=== PATIENT | female | born 1975 | race Caucasian/White ===

== ENCOUNTER → 2021-02-24 09:57 | Outpatient (CLI) | payer BC, SELFPAY ==
--- NOTE | ~2021-02-24 | XR_ITS ---
XR chest 2V DATE: 02/24/2021 10:17 INDICATION: Personal history of pneumonia TECHNIQUE: 2 views COMPARISON: 01/13/2015 2 view chest FINDINGS: Normal heart size. No hilar or mediastinal enlargement. No pulmonary infiltrate or consolid ation, pleural effusion or pulmonary vascular congestion or pneumothorax. Surgical clips, right upper quadrant, consistent with cholecystectomy. IMPRESSION: No active cardiopulmonary disease Reviewed, dictated and finalized at location A.
--- NOTE | ~2021-02-24 | XR_ITS ---
XR lumbar spine min 4V DATE: 02/24/2021 10:17 INDICATION: Back pain TECHNIQUE: AP, lateral, bilateral oblique views and coned lateral lumbosacral COMPARISON: 01/17/2018 lumbar spine FINDINGS: There are 4 functional lumbar vertebrae. There is a transitional lumbosacral vertebra. No fracture or bone destruction is evident. The lumbar and included lower thoracic pedicles are intac t. Lumbar interspaces are relatively well preserved. There is minimal degenerative spurring of the francisco mbar spine. No spondylolysis or spondylolisthesis. The sacroiliac joints appear normal. Surgical clips, right upper quadrant, likely due to cholecystectomy. Approximately 3 mm calcification and possible smaller calcifications overlying the lower pole the lef t kidney, suggesting left nephrolithiasis. IMPRESSION: Transitional lumbosacral vertebra Minimal degenerative change of the lumbar spine Status post cholecystectomy Probable left nephrolithiasis Reviewed, dictated and finalized at location A.
== END ==
PROVIDERS: Visit Provider Family Medicine
DX: M54.9 Dorsalgia, unspecified (principal); Z87.01 Personal history of pneumonia (recurrent); Z90.49 Acquired absence of other specified parts of digestive tract
CPT/HCPCS: 71046; 72110

== ENCOUNTER 2021-08-08 09:32 | Outpatient (CLI) | payer BC, SELFPAY ==
--- NOTE | ~2021-08-08 | MM_ITS ---
EXAMINATION: MM screening [facility] BI w jessica HISTORY: Screening TECHNIQUE: Craniocaudal and mediolateral oblique 3-D tomosynthesis images were obtained and synthetic 2-D images were generated. CAD analysis was submitted and interpreted. COMPARISON: Comparison to multiple prior studies sequentially, with oldest reviewed study dated 05/2018. BREAST PARENCHYMAL COMPOSITION: There are scattered areas of fibroglandular density. FINDINGS: There is no evidence of suspicious mass, calcification, or architectural distortion to sugg est malignancy in either breast. There has been no suspicious interval change. IMPRESSION: 1. No mammographic evidence of malignancy. 2. Recommend routine screening mammography in one year. BI-RADS Category 1: Negative Reviewed, dictated and finalized at location A.
== END 2021-08-08 09:33 | disposition home or self-care (01) ==
LOC: ANHIMG 09:33
PROVIDERS: PCP Family Medicine; Visit Provider Nurse Practitioner Obstetrics & Gynecology
DX: Z12.31 Encounter for screening mammogram for malignant neoplasm of breast (principal)
CPT/HCPCS: 77063; 77067

== ENCOUNTER → 2022-01-14 09:35 | Outpatient (CLI) | payer BC, SELFPAY ==
--- NOTE | ~2022-01-14 | XR_ITS ---
EXAMINATION: XR abdomen/kub 1V INDICATION: Personal history of urinary calculi TECHNIQUE: Supine views of the abdomen were obtained on 2 radiographs. COMPARISON: 02/24/2021 FINDINGS: There are stones measuring 3 mm and 2 mm in the left kidney. No stones are identified in th e right kidney with the expected location of the ureters or bladder. There are phleboliths of the pel vis. The bowel gas pattern is normal. Cholecystectomy clips are noted in the right upper quadrant. IMPRESSION: 1. Left nephrolithiasis. Reviewed, dictated and finalized at location B. 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 Left nephrolithiasis.
--- NOTE | ~2022-01-14 | XR_ITS ---
EXAMINATION: XR lumbar spine 6V w bending EXAM DATE: 01/14/2022 10:08 INDICATION: M54.50 - Low back pain, unspecified . TECHNIQUE: Lumber spine frontal, lateral, bilateral oblique projections. Coned down frontal and lat eral L5-S1 lumbar projections for interpretation. Additional lateral flexion and lateral extension p rojections obtained. Comparison is made to prior examination from 02/24/2021. FINDINGS: Vertebral bodies are aligned on all the lateral projections. Mild to moderate T12-L1 and L1 -T2 disc disease, mild disc disease at the other lumbar levels. Mild to moderate lumbar facet arthrop athy. No spondylolysis. Sacrum, sacroiliac joints, sacral arcuate lines are intact. Probable left nep hrolithiasis. There are cholecystectomy clips. IMPRESSION: 1. Mild to moderate lumbar spondylosis. 2. Left nephrolithiasis. Reviewed, dictated and finalized at location A. 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
== END ==
PROVIDERS: PCP Family Medicine; Visit Provider Nurse Practitioner Family
DX: M54.50 Low back pain, unspecified (principal); Z87.442 Personal history of urinary calculi; M47.896 Other spondylosis, lumbar region; N20.0 Calculus of kidney
CPT/HCPCS: 72114; 74018

== ENCOUNTER 2022-09-20 10:40 | Emergency (ER) | payer BC, SELFPAY ==
--- NOTE | ~2022-09-20 | CT_ITS ---
EXAMINATION: CT abdomen pelvis wo con DATE: 09/20/2022 13:17 INDICATION: Left flank pain TECHNIQUE: Computed tomography (CT) of the abdomen and pelvis was performed without intravenous contr ast. The dose-length product (DLP) was 460.22 mGy-cm. Automated exposure control and iterative recons truction technique were employed. COMPARISON: 06/27/2012 FINDINGS: Stable subpleural nodules of the lower lobes measuring up to 4 mm are consistent with old g ranulomatous disease. The gallbladder is surgically absent. The liver is diffusely low in attenuation when compared with the spleen, consistent with hepatic steatosis. The spleen, pancreas, and adrenal glands are normal. The right kidney is unremarkable. There is a 4 mm stone at the left ureteropelvic junction causing mild left hydronephrosis. There is a 5 mm nonobstructing stone in the left kidney lo wer pole. No pathologically enlarged abdominal or pelvic lymph nodes are identified. There is no free intraperitoneal gas or evidence of bowel obstruction. There is atrophy of the left iliopsoas muscle. There is mild lumbar spondylosis. There is a small fat-containing umbilical hernia. IMPRESSION: 1. 4 mm stone at the left ureteropelvic junction causing mild hydronephrosis. 2. 5 mm nonobstructing stone of the left kidney lower pole. 3. Atrophy of the left iliopsoas muscle of unclear etiology. Reviewed, dictated and finalized at location A. 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
--- NOTE | ~2022-09-20 | XR_ITS ---
XR abdomen/kub 1V DATE: 09/20/2022 14:52 INDICATION: Left flank pain TECHNIQUE: 2 portable supine AP views COMPARISON: 09/20/2022 CT abdomen pelvis FINDINGS: Approximately 4 mm calcification overlying lower pole left kidney consistent with nonobstru cting calculus. Approximately 4 mm calcification overlying the proximal left ureter at the L4 level, consistent with proximal left ureteral calculus noted on 09/20/2022 CT examination. Status post cholecystectomy. No evidence of bowel obstruction. IMPRESSION: Approximately 4 mm proximal left ureteral calcified calculus at L4 level Nonobstructing approximately 4 mm lower pole left renal calcified calculus Status post cholecystectomy Reviewed, dictated and finalized at Location A. Reviewed, dictated and finalized at location A. 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
[2022-09-20 10:49] VITALS: BP 145/80; PULSE 92; RESP 16; TEMP 37.3; O2SAT 100
[2022-09-20 11:46] LABS: Appearance Urine Cloudy (Clear); Basophils Absolute Auto 0.1 K/mm3 (0.0-0.1); Basophils Percent Auto 0.7 % (0.2-1.2); Bilirubin Urine 1+ (Negative); Blood Urine 3+ (Negative); Eosinophils Absolute Auto 0.1 K/mm3 (0-0.3); Eosinophils Percent Auto 0.8 % (0-4.4); Glucose Urine UA Negative (Negative); Hematocrit 40.6 % (37.0-47.0); Hemoglobin 13.3 g/dL (12.0-15.0); Immature Granulocyte Absolute 0.04 K/mm3 (0.00-0.031); Immature Granulocyte Percent A 0.5 % (0-0.5); Ketones Urine Negative (Negative); Leukocyte Esterase Ur Negative LEU/UL (Negative); Lymphocytes Absolute Auto 1.67 K/mm3 (0.9-3.2); Lymphocytes Percent Auto 19.2 % (18.3-44.2); Mean Corpuscular HGB Conc 32.8 g/dl (32-36); Mean Corpuscular Hemoglobin 29.2 pg (26-34); Mean Corpuscular Volume 89.2 fl (80-100); Mean Platelet Volume 9.6 fl (7.4-10.4); Monocytes Absolute Auto 0.5 K/mm3 (0.1-0.6); Monocytes Percent Auto 5.3 % (2.6-8.5); Neutrophils Absolute Auto 6.4 K/mm3 (1.3-6.7); Neutrophils Percent Auto 73.5 % (45.5-73.1); Nitrate Urine Negative (Negative); Platelet Count Result 204 k/mm3 (150-375); Protein Urine 1+ mg/dL (Negative); Red Blood Count 4.55 M/mm3 (4.2-5.4); Specific Grav Ur 1.025 (1.001-1.035); Urobilinogen Urine 0.2 mg/dL (<2.0); White Blood Count 8.7 K/mm3 (4.5-10.0); pH Urine 5.5 (5.0-9.0)
[2022-09-20 11:52] LABS: Add Urine Microscopic? YES; Color Urine Dark Yellow (Yellow)
[2022-09-20 11:56] LABS: Bacteria Urine Trace /hpf; Mucus Urine Few /lpf; RBC Urine >75 /hpf (0-2); Squamous Epithelial Cell Urine Many /hpf (Few)
[2022-09-20 11:56] LABS: Alanine Aminotransferase 41 U/L (6-35); Albumin Level 4.5 g/dL (3.5-5.1); Alkaline Phosphatase 62 U/L (38-126); Anion Gap 10 mmol/L (8-16); Aspartate Amino Transferase 33 U/L (14-36); Bilirubin,Total 0.5 mg/dL (0.2-1.3); Blood Urea Nitrogen 13 mg/dL (7-17); Calcium 8.8 mg/dL (8.4-10.2); Carbon Dioxide 26 mmol/L (22-30); Chloride 103 mmol/L (98-107); Estimated CRCL calculation 110 ml/min; Estimated Glomerular Filt Rate > 60; Glucose 147 mg/dL (65-110); Potassium 4.2 mmol/L (3.4-5.0); Sodium 139 mmol/L (137-145)
--- NOTE | 2022-09-20 12:45 | ED.GENADULT ---
HPI - General Adult General Chief complaint: Urogenital-Female Stated complaint: left flank pain, hx kidney stones Time Seen by Provider: 09/20/22 12:21 History of Present Illness HPI narrative: Patient is a 47-year-old female who presents ER with left flank pain. Going on intermittently over the last 2 days. Has waves of nausea and vomiting. No urinary frequency urgency or dysuria. Radiates into the abdomen. No fevers or chills or sweats. No alleviating factors. Has history of stones in the past and this feels similar Related Data Home Medications Medication Instructions Recorded Confirmed adapalene 0.1 % topical cream 1 applic topical QHS 02/19/21 06/30/22 aspirin 81 mg tablet,delayed 81 mg PO DAILY 02/19/21 06/30/22 release (Adult Low Dose Aspirin) fluticasone propionate 50 1 spray intranasal DAILY 02/19/21 06/30/22 mcg/actuation nasal spray,suspension lisinopril 10 mg tablet 10 mg PO DAILY 02/19/21 06/30/22 oxymetazoline 1 % topical cream 1 applic topical DAILY 02/19/21 06/30/22 (Rhofade) metoprolol succinate 25 mg 50 mg PO DAILY 10/07/21 06/30/22 tablet,extended release 24 hr Allergies Allergy/AdvReac Type Severity Reaction Status Date / Time No Known Allergies Allergy Mild Verified 06/30/22 08:26 Review of Systems Review of Systems: All systems reviewed & are unremarkable except as noted in HPI and below Constitutional: Constitutional: Denies chills, Denies fatigue and Denies fever(s) ENT: Denies nasal congestion and Denies sore throat Cardiovascular: Cardiovascular: Denies chest pain, Denies rapid heart rate and Denies radiating jaw, neck or arm pain Respiratory: Respiratory: Denies cough and Denies dyspnea Gastrointestinal: Gastrointestinal: Reports abdominal pain, Reports nausea and Reports vomiting Genitourinary: Genitourinary: Denies hematuria, Denies nocturia, Denies dysuria and Reports flank pain PMFSH Past Medical History Medical History Acute URI Body mass index (BMI) of 38.0 to 38.9 in adult Body mass index [BMI] 34.0-34.9, adult (04/22/17) Body mass index [BMI] 36.0-36.9, adult (02/07/18) Body mass index [BMI] 37.0-37.9, adult (01/24/18) Anjali infection of flexural skin Constipation, unspecified Delivery by (planned) section occurring after 37 completed weeks of gestation but before 39 completed weeks gestation due to (spontaneous) onset of labor, with mention of complication Epigastric pain Essential (primary) hypertension Fatty liver disease, nonalcoholic Hyperglycemia Hyperhomocystinemia Hypertension Influenza vaccine needed Kidney stone Lymph nodes enlarged Other constipation Plantar fasciitis, bilateral Pre-diabetes Rash RUQ pain Tension headache Unspecified injury of left wrist, hand and finger(s), initial encounter Family History Family History Father Diabetes mellitus Hypertension Mother Acute Crohn's disease Osteoporosis Sibling Kidney disease Grandparent Carcinoma of colon AA (alcohol abuse) Social History Social History Smoking status: Never smoker Tobacco type: cigarettes Second hand tobacco smoke exposure: No Alcohol intake: never Substance use: never Substance use type: does not use 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 HEAD: Normocephalic, atraumatic. CHEST: Clear to auscultation. No respiratory distress. HEART: Regular rate and rhythm. Normal peripheral pulses. ABDOMEN: Soft, nontender, nondistended. EXTREMITIES: Marcela
[2022-09-20 14:43] VITALS: BP 112/73; PULSE 90; RESP 16; O2SAT 98
== END 2022-09-20 15:14 | disposition home or self-care (01) ==
PROVIDERS: Emergency Medicine; Emergency Provider Emergency Medicine; PCP Family Medicine
DX: N13.2 Hydronephrosis with renal and ureteral calculous obstruction (principal); I10 Essential (primary) hypertension; R73.03 Prediabetes; Z87.442 Personal history of urinary calculi; Z79.82 Long term (current) use of aspirin; Z79.85 Long-term (current) use of injectable non-insulin antidiabetic drugs; M62.58 Muscle wasting and atrophy, not elsewhere classified, other site
CPT/HCPCS: 36415; 74018; 74176; 80053; 81001; 81025; 85025; 87077; 87086; 87088; 99284

== ENCOUNTER → 2022-09-28 10:20 | Outpatient (CLI) | payer BC, SELFPAY ==
--- NOTE | ~2022-09-28 | XR_ITS ---
XR abdomen/kub 1V 09/28/2022 10:35 Indication: Left renal stone follow-up Procedure: KUB Comparison: CT/KUB dated 09/20/2022 Findings: Bowel gas pattern is nonobstructive. Moderate colonic fecal loading. Stable appearance to 4 mm left UPJ stone at the L3 level. There is a left renal stone. No acute osseous abnormality. There is mild osteoarthritis of the hips. Impression: 1: Stable appearance to left renal and UPJ stones. Reviewed, dictated and finalized at location B. MARKER Impression: 1: Stable appearance to left renal and UPJ stones.
== END ==
PROVIDERS: PCP Family Medicine; Visit Provider Nurse Practitioner Adult Health
DX: N20.0 Calculus of kidney (principal)
CPT/HCPCS: 74018

== ENCOUNTER 2022-10-21 15:08 | Outpatient (CLI) | payer BC, SELFPAY ==
--- NOTE | ~2022-10-21 | MM_ITS ---
EXAMINATION: MM screening [facility] BI w jessica HISTORY: Screening TECHNIQUE: Craniocaudal and mediolateral oblique 3-D tomosynthesis images were obtained and synthetic 2-D images were generated. CAD analysis was submitted and interpreted. COMPARISON: Comparison to multiple prior studies sequentially, with oldest reviewed study dated 05/2018. BREAST PARENCHYMAL COMPOSITION: There are scattered areas of fibroglandular density. FINDINGS: There is no evidence of suspicious mass, calcification, or architectural distortion to sugg est malignancy in either breast. There has been no suspicious interval change. IMPRESSION: 1. No mammographic evidence of malignancy. 2. Recommend routine screening mammography in one year. BI-RADS Category 1: Negative Reviewed, dictated and finalized at location B. 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
== END 2022-10-21 15:09 | disposition home or self-care (01) ==
LOC: ANHIMG 15:10
PROVIDERS: PCP Family Medicine; Visit Provider Nurse Practitioner Obstetrics & Gynecology
DX: Z12.31 Encounter for screening mammogram for malignant neoplasm of breast (principal)
CPT/HCPCS: 77063; 77067

== ENCOUNTER → 2022-10-26 09:19 | Outpatient (CLI) | payer BC, SELFPAY ==
--- NOTE | ~2022-10-26 | XR_ITS ---
Supine and upright views of the abdomen Clinical history: Left ureteral stone COMPARISON: 09/28/2022 Findings: Bowel gas pattern is nonspecific. No evidence for obstruction or free air. Small left renal stone noted. Previously noted left ureteral stone no longer visualized. Cholecystectomy clips presen t. Osseous structures are intact. Impression: Previously noted left ureteral stone no longer visualized. Left nephrolithiasis. 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 Left nephrolithiasis.
== END ==
PROVIDERS: PCP Family Medicine; Visit Provider Nurse Practitioner Adult Health
DX: N20.1 Calculus of ureter (principal)
CPT/HCPCS: 74018

== ENCOUNTER 2023-11-30 03:36 | Day surgery (SDC) | payer BC, SELFPAY ==
[2023-11-03 08:57] VITALS: BMI 37.3
--- NOTE | 2023-11-26 09:31 | SUR.PREOP ---
Patient called regarding upcoming procedure. Reviewed preop instructions, appointment times, and procedure prep.
[2023-11-30 06:29] LABS: Glucose Point of Care 115 mg/dl (65-105)
[2023-11-30 06:31] VITALS: BP 135/81; PULSE 87; RESP 16; TEMP 36.4; O2SAT 100
[2023-11-30] MEDS: LACTATED RINGERS 1,000 ML 150 ML IV CONT (06:33)
--- NOTE | 2023-11-30 07:22 | PM.HPGS ---
History of Present Illness History of Present Illness Consent: Risks, benefits, and alternatives have been discussed and questions answered. Patient agrees to proceed with procedure. Chief complaint: neoplasm screening Narrative: Gabriela Bran is a 48 year old female here for first colonoscopy Review of Systems Constitutional: Constitutional: Denies headache(s) and Denies weakness Eyes: Eyes: Denies blurry vision ENT: Reports Normal hearing present, Denies headache(s) and Denies neck pain Cardiovascular: Cardiovascular: Denies chest pain and Denies dyspnea Respiratory: Respiratory: Denies dyspnea Gastrointestinal: Gastrointestinal: Reports no additional gastrointestinal complaints Genitourinary: Genitourinary: Denies dysuria Musculoskeletal: Musculoskeletal: Denies neck pain Integumentary/Breasts: Skin/Breast: Denies dry skin Neurologic: Reports Normal hearing present, Denies headache(s) and Denies weakness Psychiatric: Psychiatric: Denies anxiety Endocrine: Endocrine: Denies change in body appearance Hematologic/Lymphatic: Hematologic/Lymphatic: Denies easy bleeding Allergic/Immunologic: Allergic/Immunologic: Denies urticaria [facility] Past Medical History Medical History (Updated 11/30/23 @ 07:23 by Kenji Mcdonnell MD) Acute URI Body mass index (BMI) of 38.0 to 38.9 in adult Body mass index [BMI] 34.0-34.9, adult (04/22/17) Body mass index [BMI] 36.0-36.9, adult (02/07/18) Body mass index [BMI] 37.0-37.9, adult (01/24/18) Anjali infection of flexural skin Colon cancer screening Constipation, unspecified Delivery by (planned) section occurring after 37 completed weeks of gestation but before 39 completed weeks gestation due to (spontaneous) onset of labor, with mention of complication Epigastric pain Essential (primary) hypertension Fatty liver disease, nonalcoholic Hyperglycemia Hyperhomocystinemia Hypertension Influenza vaccine needed Kidney stone Lymph nodes enlarged Other constipation Plantar fasciitis, bilateral Pre-diabetes Rash RUQ pain Tension headache Unspecified injury of left wrist, hand and finger(s), initial encounter Family History Family History Father Diabetes mellitus Hypertension Mother Acute Crohn's disease Osteoporosis Sibling Kidney disease Grandparent Carcinoma of colon AA (alcohol abuse) Social History Social History Years smoked: 1 Smoking status: Former smoker Tobacco type: cigarettes Second hand tobacco smoke exposure: No Alcohol intake: never Substance use: never Substance use type: does not use Lack of Transportation: No Lack of Food: Never True Current Housing: I Have Housing Concerned About Future Housing: No Difficulty Paying Gas/Electric Bills: No Difficulty Paying for Meds: No Currently Unemployed: No Education: Trade/Vocational Certificate Difficulty w/ Childcare or Family Care: No Living arrangements: with family Occupation/Education: occupation 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 Gender identity (if verbalized by the patient): Female Sexual Orientation (if Verbalized by the Patient): Straight or Heterosexual Spiritual care concerns: No Agree to blood products: Yes Meds Home Medications and Allergies Home Medications Medication Instructions Recorded Confirmed Type adapalene 0.1 % topical cream 1 applic topical QHS 02/19/21 11/30/23 History aspirin 81 mg tablet,delayed 81 mg PO DAILY 02/19/21 11/30/23 History release (Adult Low Dose Aspirin) fluticasone propionate 50 1 spray intranasal DAILY 02/19/21 11/30/23 History mcg/actuation nasal spray,suspension lisinopril 10 mg tablet 10 mg PO DAILY 02/19/21 11/30/23 History metoprolol succinate 25 mg 50 mg PO DAILY 10/07/21 11/30/23 History tablet,extended relea
--- NOTE | 2023-11-30 07:29 | WPDANESEPPF ---
Anes - Initial Pre Proc Eval Procedure: Operation Date: 11/30/23 07:30 Proposed Procedures p Colonoscopy - Kenji Mcdonnell MD Date/Time: 11/30/23 07:29 Surgeon: Kenji Mcdonnell MD Pre Op Diagnosis: neoplasm screening Patient Data Age: 48 Gender: F Height: 1.6 m Weight: 95.1 kg Last Vital Signs Temp 97.6 F 11/30/23 06:31 Pulse 87 11/30/23 06:31 Resp 16 11/30/23 06:31 BP 135/81 11/30/23 06:31 Pulse Ox 100 11/30/23 06:31 O2 Del Method Room Air 11/30/23 06:31 Allergies Allergy/AdvReac Type Severity Reaction Status Date / Time No Known Allergies Allergy Mild Verified 11/30/23 06:29 Home Medications Medication Instructions Recorded Confirmed Type adapalene 0.1 % topical cream 1 applic topical QHS 02/19/21 11/30/23 History aspirin 81 mg tablet,delayed 81 mg PO DAILY 02/19/21 11/30/23 History release (Adult Low Dose Aspirin) fluticasone propionate 50 1 spray intranasal DAILY 02/19/21 11/30/23 History mcg/actuation nasal spray,suspension lisinopril 10 mg tablet 10 mg PO DAILY 02/19/21 11/30/23 History metoprolol succinate 25 mg 50 mg PO DAILY 10/07/21 11/30/23 History tablet,extended release 24 hr blood-glucose meter (Accu-Chek #1 ea 12/08/21 11/26/23 Rx Guide Glucose Meter) lancets #100 ea 04/09/23 11/26/23 Rx blood sugar diagnostic (Accu-Chek #100 ea 10/18/23 11/26/23 Rx Guide test strips) tirzepatide 5 mg/0.5 mL 5 mg (0.5 mL) subcut WEEKLY #2 mL 11/22/23 11/30/23 Rx subcutaneous pen injector (Jose Manuel) Laboratory Tests 11/30/23 06:25 POC Capillary Glucose 115 H mg/dl (65-105) Patient hx anesthesia problems: none Family hx anesthesia problems: none Results Review: All pre-operative results and documents have been reviewed as part of the pre-operative evaluation. [facility] Past Medical History Medical History (Updated 11/30/23 @ 07:23 by Kenji Mcdnonell MD) Acute URI Body mass index (BMI) of 38.0 to 38.9 in adult Body mass index [BMI] 34.0-34.9, adult (04/22/17) Body mass index [BMI] 36.0-36.9, adult (02/07/18) Body mass index [BMI] 37.0-37.9, adult (01/24/18) Anjali infection of flexural skin Colon cancer screening Constipation, unspecified Delivery by (planned) section occurring after 37 completed weeks of gestation but before 39 completed weeks gestation due to (spontaneous) onset of labor, with mention of complication Epigastric pain Essential (primary) hypertension Fatty liver disease, nonalcoholic Hyperglycemia Hyperhomocystinemia Hypertension Influenza vaccine needed Kidney stone Lymph nodes enlarged Other constipation Plantar fasciitis, bilateral Pre-diabetes Rash RUQ pain Tension headache Unspecified injury of left wrist, hand and finger(s), initial encounter Family History Family History Father Diabetes mellitus Hypertension Mother Acute Crohn's disease Osteoporosis Sibling Kidney disease Grandparent Carcinoma of colon AA (alcohol abuse) Social History Social History Years smoked: 1 Smoking status: Former smoker Tobacco type: cigarettes Second hand tobacco smoke exposure: No Alcohol intake: never Substance use: never Substance use type: does not use Lack of Transportation: No Lack of Food: Never True Current Housing: I Have Housing Concerned About Future Housing: No Difficulty Paying Gas/Electric Bills: No Difficulty Paying for Meds: No Currently Unemployed: No Education: Trade/Vocational Certificate Difficulty w/ Childcare or Family Care: No Living arrangements: with family Occupation/Education: occupation 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
[2023-11-30 07:50] VITALS: BP 121/73; PULSE 82; RESP 15; O2SAT 99
[2023-11-30 08:00] VITALS: BP 126/64; PULSE 82; RESP 15; O2SAT 100
[2023-11-30 08:10] VITALS: BP 127/50; PULSE 75; RESP 15; O2SAT 100
== END 2023-11-30 08:20 | disposition home or self-care (01) ==
PROVIDERS: PCP Family Medicine; Referring Provider Nurse Practitioner; Visit Provider Internal Medicine Gastroenterology
PROC: 0DJD8ZZ Inspection of Lower Intestinal Tract, Via Natural or Artificial Opening Endoscopic (ICD-10-PCS; CPT 45378; principal; 2023-11-30 07:30)
DX: Z12.11 Encounter for screening for malignant neoplasm of colon (principal); K63.5 Polyp of colon; K64.8 Other hemorrhoids; I10 Essential (primary) hypertension; R73.9 Hyperglycemia, unspecified; K59.09 Other constipation; R73.03 Prediabetes; E66.9 Obesity, unspecified; Z68.37 Body mass index [BMI] 37.0-37.9, adult; Z79.82 Long term (current) use of aspirin; Z79.85 Long-term (current) use of injectable non-insulin antidiabetic drugs; Z87.891 Personal history of nicotine dependence; Z80.0 Family history of malignant neoplasm of digestive organs
CPT/HCPCS: 45385; 82948; 88305; J2704; J7120

== ENCOUNTER 2023-12-25 11:09 | Emergency (ER) | payer BC, SELFPAY ==
[2023-12-25 11:22] VITALS: BP 139/93; PULSE 108; RESP 16; TEMP 37; O2SAT 100
--- NOTE | 2023-12-25 11:51 | ED.FEMALEGU ---
HPI - Female Genitourinary General Chief complaint: Urogenital-Female Stated complaint: uti symptoms Source: patient and RN notes reviewed Mode of arrival: ambulatory Limitations: no limitations History of Present Illness HPI Narrative: 48 y/o female with hx DM, HTN, presented for c/o blood in urine x2 days. Reports very minimal lower abdominal pressure. Pt endorses hx renal stones, with known 5mm stone. Planned to have the stone removed last spring but has not done the procedure. Pt denies nausea, vomiting, abdominal pain, flank pain, constipation, diarrhea, fevers or chills. Not taking anything for symptoms. Related Data Home Medications Medication Instructions Recorded Confirmed adapalene 0.1 % topical cream 1 applic topical QHS 02/19/21 11/30/23 aspirin 81 mg tablet,delayed 81 mg PO DAILY 02/19/21 11/30/23 release (Adult Low Dose Aspirin) fluticasone propionate 50 1 spray intranasal DAILY 02/19/21 11/30/23 mcg/actuation nasal spray,suspension lisinopril 10 mg tablet 10 mg PO DAILY 02/19/21 11/30/23 metoprolol succinate 25 mg 50 mg PO DAILY 10/07/21 11/30/23 tablet,extended release 24 hr Allergies Allergy/AdvReac Type Severity Reaction Status Date / Time No Known Allergies Allergy Mild Verified 11/30/23 06:29 Review of Systems Review of Systems: CONSTITUTIONAL: Denies body aches, fever, chills, or sweats. CARDIOVASCULAR: Denies chest pain, palpitations, or edema. RESPIRATORY: Denies cough or dyspnea. GASTROINTESTINAL: Denies abdominal pain, nausea, vomiting, or diarrhea. GENITOURINARY: reports hematuria denies dysuria, frequency, urgency, flank pain SKIN: Denies rash, itching, or wounds. MUSCULOSKELETAL: Denies back pain or myalgia. [facility] Past Medical History Medical History Acute URI Body mass index (BMI) of 38.0 to 38.9 in adult Body mass index [BMI] 34.0-34.9, adult (04/22/17) Body mass index [BMI] 36.0-36.9, adult (02/07/18) Body mass index [BMI] 37.0-37.9, adult (01/24/18) Anjali infection of flexural skin Colon cancer screening Constipation, unspecified Delivery by (planned) section occurring after 37 completed weeks of gestation but before 39 completed weeks gestation due to (spontaneous) onset of labor, with mention of complication Epigastric pain Essential (primary) hypertension Fatty liver disease, nonalcoholic Hyperglycemia Hyperhomocystinemia Hypertension Influenza vaccine needed Kidney stone Lymph nodes enlarged Other constipation Plantar fasciitis, bilateral Pre-diabetes Rash RUQ pain Tension headache Unspecified injury of left wrist, hand and finger(s), initial encounter Family History Family History Father Diabetes mellitus Hypertension Mother Acute Crohn's disease Osteoporosis Sibling Kidney disease Grandparent Carcinoma of colon AA (alcohol abuse) Social History Social History Years smoked: 1 Smoking status: Former smoker Tobacco type: cigarettes Second hand tobacco smoke exposure: No Alcohol intake: never Substance use: never Substance use type: does not use Lack of Transportation: No Lack of Food: Never True Current Housing: I Have Housing Concerned About Future Housing: No Difficulty Paying Gas/Electric Bills: No Difficulty Paying for Meds: No Currently Unemployed: No Education: Trade/Vocational Certificate Difficulty w/ Childcare or Family Care: No Living arrangements: with family Occupation/Education: occupation 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
== END 2023-12-25 12:11 | disposition home or self-care (01) ==
PROVIDERS: Emergency Provider Nurse Practitioner Family; PCP Family Medicine
DX: N39.0 Urinary tract infection, site not specified (principal); B95.1 Streptococcus, group B, as the cause of diseases classified elsewhere; R31.9 Hematuria, unspecified; Z87.891 Personal history of nicotine dependence; I10 Essential (primary) hypertension; K76.0 Fatty (change of) liver, not elsewhere classified; Z79.82 Long term (current) use of aspirin; E11.9 Type 2 diabetes mellitus without complications
CPT/HCPCS: 81003; 87086; 99213; G0463

== ENCOUNTER 2023-12-27 16:19 | Outpatient (CLI) | payer BC, SELFPAY ==
--- NOTE | ~2023-12-27 | CT_ITS ---
EXAMINATION: CT abdomen pelvis wo con DATE: 12/27/2023 16:39 INDICATION: Left flank pain TECHNIQUE: Computed tomography (CT) of the abdomen and pelvis was performed without intravenous contr ast. The dose-length product (DLP) was 1251.92 mGy-cm. Automated exposure control and iterative recon struction technique were employed. COMPARISON: 09/20/2022 FINDINGS: A chronic 5 mm subpleural nodule of the right lower lobe is consistent with old granulomato us disease. There is mild dependent atelectasis of the visualized lung bases. The liver is diffusely low in attenuation when compared with the spleen, consistent with hepatic steatosis. Changes of che cystectomy are noted. The spleen, pancreas, and adrenal glands are normal. The right kidney is unrema rkable. There is a 6 mm stone at the left ureteropelvic junction which causes mild hydronephrosis. Th ere is a 2 mm nonobstructing stone of the left mid kidney. No pathologically enlarged abdominal or pe lvic lymph nodes are identified. No free intraperitoneal gas or evidence of bowel obstruction. There is mild lumbar spondylosis. IMPRESSION: 1. 6 mm stone at the left ureterovesicular junction causing mild hydronephrosis. 2. Nonobstructing left nephrolithiasis. Reviewed, dictated and finalized at location B. ER LEVEL TEACHING ASSISTANT IMPRESSION: 1. 6 mm stone at the left ureterovesicular junction causing mild hydronephrosis . 2. Nonobstructing left nephrolithiasis.
== END 2023-12-27 16:20 | disposition home or self-care (01) ==
LOC: ANHIMG 16:22
PROVIDERS: PCP Family Medicine; Visit Provider Physician Assistant
DX: N13.2 Hydronephrosis with renal and ureteral calculous obstruction (principal)
CPT/HCPCS: 74176

== ENCOUNTER 2023-12-27 17:09 | Emergency (ER) | payer BC, SELFPAY ==
--- NOTE | ~2023-12-27 | XR_ITS ---
EXAM: XR abdomen/kub 1V DATE: 12/27/2023 20:13 HISTORY: Ureteral calculi by CT scan . COMPARISON: X-ray abdomen and CT abdomen pelvis 12/27/2023. FINDINGS: Normal bowel gas pattern. No organomegaly. 6 no lytic or station projecting adjacent to th e L3 vertebral body, unchanged. Sacralization of L5. Regional bones and soft tissues normal for age. Cholecystectomy clips. IMPRESSION: Unchanged left UPJ stone. Reviewed, dictated and finalized at location K. WORKER IMPRESSION: Unchanged left UPJ stone.
[2023-12-27 17:39] VITALS: BP 136/80; PULSE 85; RESP 18; TEMP 36.9; O2SAT 100
--- NOTE | 2023-12-27 17:57 | ED.GENADULT ---
HPI - General Adult General Chief complaint: Abdominal Pain <Evita Mariano, HOTEL RECREATIONAL FACILITIES MANAGER - Last Filed: 12/27/23 18:01> Stated complaint: left flank pain <Evita Mariano HOTEL RECREATIONAL FACILITIES MANAGER - Last Filed: 12/27/23 18:01> Time Seen by Provider: 12/27/23 17:57 <Evita Jack March, HOTEL RECREATIONAL FACILITIES MANAGER - Last Filed: 12/27/23 18:01> Focused HPI: Gabriela Bran is a 48 y/o female who has a hx of kidney stones she states that she started to notice blood in her urine and wednesday. She started to have pain and vomiting last night and she called her urologist who ordered an Out pt CT scan and she had that done today and it was found to have a 6 mm stone at the left ureterovesical joint causing mild hydronephrosis GENERAL: Well-appearing, well-nourished, and appears to be in pain HEAD: Normocephalic, atraumatic. CHEST: Clear to auscultation. ?No respiratory distress. HEART: Regular rate and rhythm.? NEURO: ?Alert and oriented x3. Patient screened in triage and initial orders placed.? ?Additional care and disposition to be based upon?diagnostic testing and treatment. <Evita Mariano, HOTEL RECREATIONAL FACILITIES MANAGER - Last Filed: 12/27/23 18:01> History of Present Illness HPI narrative: 48-year-old female presents emergency department for evaluation of left flank pain. Patient had outpatient CT scan showing a 6 mm ureteral calculi. Upon arrival to the emergency department patient's pain was controlled. <Adria Chiu MD - Last Filed: 12/28/23 07:06> Related Data Home medications: Home Medications Medication Instructions Recorded Confirmed adapalene 0.1 % topical cream 1 applic topical QHS 02/19/21 11/30/23 aspirin 81 mg tablet,delayed 81 mg PO DAILY 02/19/21 11/30/23 release (Adult Low Dose Aspirin) fluticasone propionate 50 1 spray intranasal DAILY 02/19/21 11/30/23 mcg/actuation nasal spray,suspension lisinopril 10 mg tablet 10 mg PO DAILY 02/19/21 11/30/23 metoprolol succinate 25 mg 50 mg PO DAILY 11/30/21 01/23/24 tablet,extended release 24 hr <Evita Jack March, - Last Filed: 12/27/23 18:01> Allergies/adverse reactions: Allergies Allergy/AdvReac Type Severity Reaction Status Date / Time No Known Allergies Allergy Mild Verified 12/27/23 17:10 <Evita Jack March, - Last Filed: 12/27/23 18:01> Review of Systems Review of Systems: All systems reviewed & are unremarkable except as noted in HPI and below <Adria Chiu MD - Last Filed: 12/28/23 07:06> [facility] Past Medical History Medical History: Medical History Acute URI Body mass index (BMI) of 38.0 to 38.9 in adult Body mass index [BMI] 34.0-34.9, adult (04/22/17) Body mass index [BMI] 36.0-36.9, adult (02/07/18) Body mass index [BMI] 37.0-37.9, adult (01/24/18) Ajnali infection of flexural skin Colon cancer screening Constipation, unspecified Delivery by (planned) section occurring after 37 completed weeks of gestation but before 39 completed weeks gestation due to (spontaneous) onset of labor, with mention of complication Epigastric pain Essential (primary) hypertension Fatty liver disease, nonalcoholic Hyperglycemia Hyperhomocystinemia Hypertension Influenza vaccine needed Kidney stone Lymph nodes enlarged Other constipation Plantar fasciitis, bilateral Pre-diabetes Rash RUQ pain Tension headache Unspecified injury of left wrist, hand and finger(s), initial encounter <Evita Jack March, - Last Filed: 12/27/23 18:01> Family History Family History: Family History Father Diabetes mellitus Hypertension Mother Acute Crohn's disease Osteoporosis Sibling Kidney disease Grandparent Carcinoma of colon AA (alcohol abuse) <Evita Jack March, - Last Filed: 12/27/23 18:01> Social History Social History: Social History Years smoked: 1 Smoking status: Former smo
[2023-12-27 18:13] LABS: Basophils Absolute Auto 0.1 K/mm3 (0.0-0.1); Basophils Percent Auto 0.7 % (0.2-1.2); Eosinophils Absolute Auto 0.1 K/mm3 (0-0.3); Eosinophils Percent Auto 1.1 % (0-4.4); Hematocrit 46.6 % (37.0-47.0); Hemoglobin 14.7 g/dL (12.0-15.0); Immature Granulocyte Absolute 0.05 K/mm3 (0.00-0.031); Immature Granulocyte Percent A 0.6 % (0-0.5); Lymphocytes Absolute Auto 2.04 K/mm3 (0.9-3.2); Lymphocytes Percent Auto 23.4 % (18.3-44.2); Mean Corpuscular HGB Conc 31.5 g/dl (32-36); Mean Corpuscular Hemoglobin 28.7 pg (26-34); Mean Platelet Volume 10.1 fl (7.4-10.4); Monocytes Absolute Auto 0.5 K/mm3 (0.1-0.6); Neutrophils Absolute Auto 5.9 K/mm3 (1.3-6.7); Neutrophils Percent Auto 68.2 % (45.5-73.1); Platelet Count Result 199 k/mm3 (150-375); Red Blood Count 5.12 M/mm3 (4.2-5.4); Red Cell Distribution Width 13.2 % (11.5-14.5); White Blood Count 8.7 K/mm3 (4.5-10.0)
[2023-12-27 18:21] LABS: Alanine Aminotransferase 54 U/L (6-35); Albumin Level 4.8 g/dL (3.5-5.1); Alkaline Phosphatase 71 U/L (38-126); Anion Gap 9 mmol/L (8-16); Aspartate Amino Transferase 36 U/L (14-36); Bilirubin,Total 0.8 mg/dL (0.2-1.3); Blood Urea Nitrogen 14 mg/dL (7-17); Calcium 9.7 mg/dL (8.4-10.2); Carbon Dioxide 27 mmol/L (22-30); Chloride 102 mmol/L (98-107); Estimated CRCL calculation 108 ml/min; Estimated Glomerular Filt Rate > 60; Glucose 143 mg/dL (65-110); Sodium 138 mmol/L (137-145)
[2023-12-27] MEDS: HYDROcodone/acetaminophen (*CRX) 5-325 MG TABLET 1 TAB PO ×2 (18:24→19:57)
[2023-12-27] MEDS: ONDANSETRON INJ 4 MG/2 ML VIAL IV PUSH ×2 (18:33→19:56)
[2023-12-27] MEDS: KETOROLAC 30 MG/ML VIAL (*BKC) IV PUSH (18:33)
[2023-12-27 18:48] VITALS: BP 137/90; PULSE 96; RESP 20; TEMP 36.6; O2SAT 100
[2023-12-27 18:59] LABS: Appearance Urine Clear (Clear); Bacteria Urine None Seen /hpf; Bilirubin Urine Negative (Negative); Blood Urine 3+ (Negative); Color Urine Yellow (Yellow); Glucose Urine UA Negative (Negative); Ketones Urine 1+ mg/dL (Negative); Leukocyte Esterase Ur 1+ LEU/UL (Negative); Nitrate Urine Negative (Negative); Non Pathogenic Casts 0-2; Protein Urine Negative (Negative); RBC Urine 21-50 /hpf (0-2); Specific Grav Ur 1.015 (1.001-1.035); Squamous Epithelial Cell Urine Occasional /hpf (Few); Urobilinogen Urine 0.2 mg/dL (<2.0)
[2023-12-27 19:14] LABS: Add Urine Microscopic? YES
--- NOTE | 2023-12-27 19:45 | PC.NURSE ---
this rn assumed care of patient. this rn took patient report from BHARATH Quinn.
[2023-12-27 19:51] VITALS: BP 110/69; PULSE 84; RESP 18; O2SAT 100
[2023-12-27] MEDS: TAMSULOSIN HCL 0.4 MG CAPSULE PO (19:57)
== END 2023-12-27 21:06 | disposition home or self-care (01) ==
PROVIDERS: Student in an Organized Health Care Education/Training Program; Emergency Provider Emergency Medicine; PCP Family Medicine
DX: N20.1 Calculus of ureter (principal); I10 Essential (primary) hypertension; R73.03 Prediabetes; E72.11 Homocystinuria; Z87.442 Personal history of urinary calculi; Z87.891 Personal history of nicotine dependence
CPT/HCPCS: 36415; 74018; 74176; 80053; 81001; 81025; 85025; 87086; 96374; 96375; 96376; 99284; A9270; J1885; J2405

== ENCOUNTER 2023-12-28 04:00 | Day surgery (SDC) | payer BC, SELFPAY ==
[2023-12-28] VITALS (28 sets, daily range): BP systolic 114–147; BP diastolic 66–98; PULSE 79–106; RESP 12–18; TEMP 36.3–36.8; O2SAT 93–100
--- NOTE | ~2023-12-28 | XR_ITS ---
EXAMINATION: XR retrograde pyelo w/stent LT INDICATION: Left ureteropelvic junction stone TECHNIQUE: Seven intraoperative fluoroscopic images are submitted for review. Total fluoroscopic time is 15.9 seconds. COMPARISON: 12/27/2023 FINDINGS: Fluoroscopic images demonstrate mild left hydronephrosis. Please refer to procedure note fo r full details. IMPRESSION: 1. Please refer to procedure note for full details. Reviewed, dictated and finalized at location L. TLE FILLER
[2023-12-28] MEDS: HYDROmorphone HCL INJ (*CRX) 1 MG/ML SYR IV PUSH (05:42)
[2023-12-28] MEDS: ONDANSETRON INJ 4 MG/2 ML VIAL IV PUSH ×2 (05:43→07:47)
[2023-12-28] MEDS: SODIUM CHLORIDE 0.9% IV 1,000 ML 150 ML IV CONT (07:46)
[2023-12-28] MEDS: MORPHINE SULFATE (*CRX) 4 MG/ML INJ IV PUSH (07:47)
--- NOTE | 2023-12-28 09:01 | WPDURCON ---
Assessment and Plan Assessment and plan (1) Left ureteral stone: Code(s): N20.1 - Calculus of ureter Status: Acute (2) Hydronephrosis of left kidney: Code(s): N13.30 - Unspecified hydronephrosis Status: Acute (3) Intractable nausea and vomiting: Code(s): R11.2 - Nausea with vomiting, unspecified Status: Acute (4) Left renal stone: Code(s): N20.0 - Calculus of kidney Status: Acute Plan 48-year-old female with 6 mm left UVJ stone with mild left hydronephrosis and intractable nausea and vomiting - Plan for cystoscopy, left ureteroscopy, possible left retrograde pyelogram, possible left stone extraction, laser lithotripsy, and left ureteral stent placement this afternoon with Dr. Aponte. Discussed risks, benefits, alternatives of procedure and patient agrees to proceed. Discussed temporary nature of ureteral stent and need for appropriate outpatient follow-up. Continue NPO diet. Plan for discharge home postoperatively. - Continue antiemetics as needed - Noted to have 2 mm nonobstructing left renal stone, will continue to observe as an outpatient Urology Consult Note HPI Date Seen: 12/28/23 Primary Care Provider: Reji Tabares MD Consult Narrative Narrative: Gabriela Bran is a 48 year old female with history of kidney stones s/p left ESWL 09/[address] Wade who presented to the ER on 12/28/23 with complaints of left flank pain. Her symptoms initially started 5 days ago. She went to the urgent care on 12/25/23 for evaluation of hematuria. She was treated for possible UTI. Immediately after this she developed left flank pain that became quite severe with associated nausea and vomiting. She was seen in the office yesterday, 12/27/23, and her pain was better controlled at that time, nausea and vomiting had resolved. She was started on tamsulosin and sent for CT. An outpatient CT scan was completed which demonstrated a 6 mm left UVJ stone with mild hydronephrosis and 2 mm nonobstructing left renal stone. After her outpatient imaging, she developed worsened pain again. She proceeded to the ER for evaluation. A KUB was completed which showed a visible unchanged left UPJ stone. Her pain improved with analgesics and she was discharged with oral pain meds and antiemetics with plans for outpatient follow up. She was home for about 4 hours when her pain became severe again with nausea, vomiting, and chills. She returned to the emergency room early this morning. At the time of my evaluation, she reports 3-4/10 left flank pain. She is no longer vomiting but still feels nauseous. Her WBC is within normal limits. Creatinine is 0.6. UA abnormal with leukocytes and blood; urine culture is pending, though she denies dysuria and reports resolution of hematuria. Review of Systems Review of Systems: All systems reviewed & are unremarkable except as noted in HPI and below PMFSH Past Medical History Medical History (Updated 12/28/23 @ 09:19 by Carleen Fermin PA-C) Acute URI Body mass index (BMI) of 38.0 to 38.9 in adult Body mass index [BMI] 34.0-34.9, adult (04/22/17) Body mass index [BMI] 36.0-36.9, adult (02/07/18) Body mass index [BMI] 37.0-37.9, adult (01/24/18) Anjali infection of flexural skin Colon cancer screening Constipation, unspecified Delivery by (planned) section occurring after 37 completed weeks of gestation but before 39 completed weeks gestation due to (spontaneous) onset of labor, with mention of complication Epigastric pain Essential (primary) hypertension Fatty liver disease, nonalcoholic Hyperglycemia Hyperhomocystinemia Hypertension Influenza vaccine needed Kidney stone Lymph nodes enlarged Other constipation Plantar fasciitis, bilateral Pre-diabetes Rash RUQ pain Tension headache Unspecified injury of left wrist, hand and finger(s), initial encounter Surgical History Surgical History (Updated 12/28/23 @ 09:18 by Carleen Fermin PA-C)
--- NOTE | 2023-12-28 09:28 | ED.BACK ---
HPI - Back Pain/Injury General Chief Complaint: Back Pain/Injury Stated Complaint: kidney stone-L flank pn, vomiting Time Seen by Provider: 12/28/23 05:52 Source: patient Mode of arrival: ambulatory Limitations: no limitations History of Present Illness HPI Narrative: 48-year-old with a history of kidney stones presents to the ER with complaints of left flank pain radiating to left anterior abdomen. Patient states that she was seen last night for the same was diagnosed with 6 mm kidney stone. She states that she is unable to control the pain was extremely nauseated. She denies any fever or chills MD elicited complaint: back pain Pertinent past history: other (Kidney stone) Onset (ago): hour(s) (10) Timing: constant Severity: severe Similar Symptoms Previously: Yes Quality: sharp Radiation: abdomen Exacerbating factors: none Relieving factors: none Associated symptoms: denies other symptoms Related Data Home Medications Medication Instructions Recorded Confirmed adapalene 0.1 % topical cream 1 applic topical QHS 02/19/21 11/30/23 aspirin 81 mg tablet,delayed 81 mg PO DAILY 02/19/21 11/30/23 release (Adult Low Dose Aspirin) fluticasone propionate 50 1 spray intranasal DAILY 02/19/21 11/30/23 mcg/actuation nasal spray,suspension lisinopril 10 mg tablet 10 mg PO DAILY 02/19/21 11/30/23 metoprolol succinate 25 mg 50 mg PO DAILY 10/07/21 11/30/23 tablet,extended release 24 hr Allergies Allergy/AdvReac Type Severity Reaction Status Date / Time No Known Allergies Allergy Mild Verified 12/27/23 17:10 Review of Systems Review of Systems: All systems reviewed & are unremarkable except as noted in HPI and below Constitutional: Constitutional: Reports no additional constitutional complaints Eyes: Eyes: Reports no additional eye complaints ENT: Reports system reviewed and no additional complaints, except as documented Cardiovascular: Cardiovascular: Reports no additional cardiovascular complaints Respiratory: Respiratory: Reports no additional respiratory complaints Gastrointestinal: Gastrointestinal: Reports as per HPI Musculoskeletal: Musculoskeletal: Reports no additional musculoskeletal complaints PMFSH Past Medical History Medical History Acute URI Body mass index (BMI) of 38.0 to 38.9 in adult Body mass index [BMI] 34.0-34.9, adult (04/22/17) Body mass index [BMI] 36.0-36.9, adult (02/07/18) Body mass index [BMI] 37.0-37.9, adult (01/24/18) Anjali infection of flexural skin Colon cancer screening Constipation, unspecified Delivery by (planned) section occurring after 37 completed weeks of gestation but before 39 completed weeks gestation due to (spontaneous) onset of labor, with mention of complication Epigastric pain Essential (primary) hypertension Fatty liver disease, nonalcoholic Hyperglycemia Hyperhomocystinemia Hypertension Influenza vaccine needed Kidney stone Lymph nodes enlarged Other constipation Plantar fasciitis, bilateral Pre-diabetes Rash RUQ pain Tension headache Unspecified injury of left wrist, hand and finger(s), initial encounter Surgical History Surgical History History of lithotripsy Family History Family History Father Diabetes mellitus Hypertension Mother Acute Crohn's disease Osteoporosis Sibling Kidney disease Grandparent Carcinoma of colon AA (alcohol abuse) Social History Social History Years smoked: 1 Smoking status: Former smoker Tobacco type: cigarettes Second hand tobacco smoke exposure: No Alcohol intake: never Substance use: never Substance use type: does not use Lack of Transportation: No Lack of Food: Never True Current Housing: I Have Housing Concerned About Future Housing: No Diffi
--- NOTE | 2023-12-28 13:12 | WPDHPUPDATE1 ---
History and Physical Update Update Date/Time: 12/28/23 13:12 History and Physical has been reviewed, including an updated exam of the patient. There are NO changes in the patient's condition. Risks, benefits, and alternatives have been discussed and questions answered. Patient agrees to proceed with procedure. Proceed with cystoscopy, left retrograde pyelogram, left ureteroscopy with stone extraction, possible laser, stent placement
--- NOTE | 2023-12-28 13:15 | WPDANESEPPF ---
Anes - Initial Pre Proc Eval Procedure: Operation Date: 12/28/23 13:00 Proposed Procedures p Cystoscopy, Left Ureteroscopy, Possible Left Retrograde Pyelogram, Possible Left Stone Extraction, Possible Left Stent Placement, Possible Holmium Laser - Praveen Aponte MD Date/Time: 12/28/23 13:15 Surgeon: Praveen Aponte MD Pre Op Diagnosis: kidney stone-L flank pn, vomiting Patient Data Age: 48 Gender: F Height: 1.6 m Weight: 94.2 kg Last Vital Signs Temp 36.8 C 12/28/23 10:24 Pulse 97 12/28/23 10:24 Resp 16 12/28/23 10:24 BP 137/75 12/28/23 10:24 Pulse Ox 100 12/28/23 10:24 O2 Del Method Room Air 12/28/23 10:24 Allergies Allergy/AdvReac Type Severity Reaction Status Date / Time No Known Allergies Allergy Mild Verified 12/27/23 17:10 Home Medications Medication Instructions Recorded Confirmed Type adapalene 0.1 % topical cream 1 applic topical QHS 02/19/21 11/30/23 History aspirin 81 mg tablet,delayed 81 mg PO DAILY 02/19/21 11/30/23 History release (Adult Low Dose Aspirin) fluticasone propionate 50 1 spray intranasal DAILY 02/19/21 11/30/23 History mcg/actuation nasal spray,suspension lisinopril 10 mg tablet 10 mg PO DAILY 02/19/21 11/30/23 History metoprolol succinate 25 mg 50 mg PO DAILY 10/07/21 11/30/23 History tablet,extended release 24 hr blood-glucose meter (Accu-Chek #1 ea 12/08/21 11/26/23 Rx Guide Glucose Meter) lancets #100 ea 04/09/23 11/26/23 Rx blood sugar diagnostic (Accu-Chek #100 ea 10/18/23 11/26/23 Rx Guide test strips) tirzepatide 5 mg/0.5 mL 5 mg (0.5 mL) subcut WEEKLY #2 mL 11/22/23 11/30/23 Rx subcutaneous pen injector (Mounjaro) nitrofurantoin 100 mg PO Q12H 5 days #10 caps 12/25/23 Rx monohydrate/macrocrystals 100 mg capsule (Macrobid) hydrocodone 5 mg-acetaminophen 325 1 tablet PO Q8H PRN pain #20 tabs 12/27/23 Rx mg tablet ondansetron 4 mg disintegrating 4 mg PO Q8H PRN nausea and 12/27/23 Rx tablet vomiting #14 tabs tamsulosin 0.4 mg capsule (Flomax) 0.4 mg PO DAILY #20 caps 12/27/23 Rx Patient hx anesthesia problems: none Family hx anesthesia problems: none Results Review: All pre-operative results and documents have been reviewed as part of the pre-operative evaluation. [facility] Past Medical History Medical History Acute URI Body mass index (BMI) of 38.0 to 38.9 in adult Body mass index [BMI] 34.0-34.9, adult (04/22/17) Body mass index [BMI] 36.0-36.9, adult (02/07/18) Body mass index [BMI] 37.0-37.9, adult (01/24/18) Anjali infection of flexural skin Colon cancer screening Constipation, unspecified Delivery by (planned) section occurring after 37 completed weeks of gestation but before 39 completed weeks gestation due to (spontaneous) onset of labor, with mention of complication Epigastric pain Essential (primary) hypertension Fatty liver disease, nonalcoholic Hyperglycemia Hyperhomocystinemia Hypertension Influenza vaccine needed Kidney stone Lymph nodes enlarged Other constipation Plantar fasciitis, bilateral Pre-diabetes Rash RUQ pain Tension headache Unspecified injury of left wrist, hand and finger(s), initial encounter Surgical History Surgical History History of lithotripsy Family History Family History Father Diabetes mellitus Hypertension Mother Acute Crohn's disease Osteoporosis Sibling Kidney disease Grandparent Carcinoma of colon AA (alcohol abuse) Social History Social History Years smoked: 1 Smoking status: Former smoker Tobacco type: cigarettes Second hand tobacco smoke exposure: No Alcohol intake: never Substance use: never Substance use type: does not use Lack of Transportation
[2023-12-28] MEDS: LACTATED RINGERS 1,000 ML 30 ML IV CONT (13:23)
[2023-12-28] MEDS: ceFAZolin 2 GM/D5W 50 ML 2 GM/50 ML BAG IVPB (13:32)
[2023-12-28] MEDS: LIDOCAINE HCL 2% GEL UROJET 10 ML PKG MUCOUS MEM (13:58)
--- NOTE | 2023-12-28 14:03 | W.PM.PROC2 ---
Procedure Note - Detailed Date of Procedure 12/28/23 Pre-op Diagnosis left ureteral calculus stone-L flank pn, vomiting Post-op Diagnosis Same Procedure Performed Cystoscopy, left retrograde pyelogram, left ureteroscopy with holmium laser, stone extraction, left ureteral stent placement 4.8 Georgian contour Surgeon Praveen Aponte MD Anesthesia General Description of Procedure Patient is taken to the operative suite correctly identified. Once anesthesia was obtained she was placed in the dorsal lithotomy position and prepped and draped usual sterile fashion. Twenty-two Georgian scope was inserted the bladder. There were no tumors noted. The left orifice was cannulated with a guidewire and dilated using an 8/10 dilator. The initial report was a UVJ stone. Rigid ureteral scope was inserted in but there were no distal stones. The stone was visualized in the proximal ureter. It was too large to retrieved in 1 piece. Escape basket was placed around it and a holmium laser was used to fragment the stone in multiple pieces. The largest which were retrieved and sent for analysis. Reinspection revealed no residual stones. Pyelogram was then performed to confirm placement of the stent. 4.8 Georgian contour stent was then placed with the proximal end coiled in the renal pelvis and the distal in the bladder. Bladder was drained. 2% viscous lidocaine was inserted into the urethra patient is taken recovery room stable condition. She will be discharged home from our standpoint follow-up in a week's time for stent removal. She is to call for appointment. This completes dictation. Please send a copy of op note to my office. Drains Yes Packing No Pathology Yes Complications No immediate complications Condition Stable Disposition PACU
== END 2023-12-28 16:08 | disposition home or self-care (01) ==
LOC: ANHED 09:44 → ANHSURGERY 09:49
PROVIDERS: Emergency Provider Family Medicine; PCP Family Medicine; Visit Provider Urology
PROC: (CPT 52352; principal; 2023-12-28 13:00)
DX: N20.1 Calculus of ureter (principal); I10 Essential (primary) hypertension; R73.9 Hyperglycemia, unspecified; R73.03 Prediabetes; E72.11 Homocystinuria; E66.9 Obesity, unspecified; Z68.36 Body mass index [BMI] 36.0-36.9, adult; Z98.890 Other specified postprocedural states; Z79.82 Long term (current) use of aspirin; Z79.85 Long-term (current) use of injectable non-insulin antidiabetic drugs; Z79.891 Long term (current) use of opiate analgesic; Z87.891 Personal history of nicotine dependence; Z80.0 Family history of malignant neoplasm of digestive organs
CPT/HCPCS: 52356; 74420; 82365; 88300; 96361; 96374; 96375; 96376; 99285; C1769; C2617; J0690; J1100; J1170; J2250; J2270; J2405; J2704; J3010; J7030; J7120; Q9966

== ENCOUNTER → 2024-01-06 08:45 | Outpatient (CLI) | payer BC, SELFPAY ==
--- NOTE | ~2024-01-06 | XR_ITS ---
Supine and upright views of the abdomen Clinical history: Kidney stone COMPARISON: 12/27/2023 Findings: Bowel gas pattern is nonspecific. No evidence for obstruction or free air. Left ureteral st ent in place. No abnormal mass lesion or calcification is seen. Osseous structures are intact. Impression: Left ureteral stent in place. No definite renal or ureteral stones seen currently. Reviewed, dictated and finalized at location . ERS AND PRESSURE VESSELS INSPECTOR Impression: Left ureteral stent in place. No definite renal or ureteral stones seen current ly.
== END ==
PROVIDERS: PCP Physician Assistant; Visit Provider Physician Assistant
DX: N20.0 Calculus of kidney (principal)
CPT/HCPCS: 74018

== ENCOUNTER 2024-03-07 08:21 | Outpatient (CLI) | payer BC, SELFPAY ==
--- NOTE | ~2024-03-07 | MM_ITS ---
EXAMINATION: MM screening sarah BI w jessica HISTORY: Screening mammogram TECHNIQUE: Craniocaudal and mediolateral oblique 3-D tomosynthesis images were obtained and synthetic 2-D images were generated. CAD analysis was submitted and interpreted. COMPARISON: 10/21/2022, 08/08/2021 bilateral screening mammogram examinations BREAST PARENCHYMAL COMPOSITION: The breasts are almost entirely fatty. FINDINGS: There is no evidence of suspicious mass, calcification, or architectural distortion to sugg est malignancy in either breast. There has been no suspicious interval change. IMPRESSION: 1. No mammographic evidence of malignancy. 2. Recommend routine screening mammography in one year. BI-RADS Category 1: Negative Reviewed, dictated and finalized at location A.
== END 2024-03-07 08:22 | disposition home or self-care (01) ==
PROVIDERS: PCP Physician Assistant; Visit Provider Nurse Practitioner
DX: Z12.31 Encounter for screening mammogram for malignant neoplasm of breast (principal)
CPT/HCPCS: 77063; 77067

== ENCOUNTER 2024-06-28 10:36 | Outpatient (CLI) | payer BC, SELFPAY ==
--- NOTE | ~2024-06-28 | XR_ITS ---
XR knee RT min 4V Ordering provider: Trent Chamberlain NP History: . M25.561 - Pain in right knee . Comparison: None. FINDINGS: BONES: No acute fracture or dislocation. JOINT SPACES: Normal. Marginal osteophytes in the patella. SOFT TISSUES: Normal. IMPRESSION: No acute osseous abnormality right knee. Osteoarthritic changes of the patellofemoral joint. Reviewed, dictated and finalized at location A.
== END 2024-06-28 10:37 ==
DX: M17.11 Unilateral primary osteoarthritis, right knee (principal)
CPT/HCPCS: 73564

== ENCOUNTER 2025-03-08 09:00 | Outpatient (CLI) | payer OTHER, SELFPAY ==
--- NOTE | ~2025-03-08 | MM_ITS ---
EXAMINATION: MM screening sarah BI w jessica HISTORY: Screening TECHNIQUE: Craniocaudal and mediolateral oblique 3-D tomosynthesis images were obtained and synthetic 2-D images were generated. CAD analysis was submitted and interpreted. COMPARISON: Comparison to multiple prior studies sequentially, with oldest reviewed study dated 05/2018. BREAST PARENCHYMAL COMPOSITION: Not Dense: The breasts are almost entirely fatty. FINDINGS: There is no evidence of suspicious mass, calcification, or architectural distortion to sugg est malignancy in either breast. There has been no suspicious interval change. IMPRESSION: 1. No mammographic evidence of malignancy. 2. Recommend routine screening mammography in one year. BI-RADS Category 1: Negative Reviewed, dictated and finalized at location A.
--- OUTSIDE RECORDS SUMMARY | 2025-03-08 09:18 | XMS_ITS | Data Portability ---
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 Patient will come back in a year unless there are new symptoms. Not available 09/01/2022 09:59:44 09/17/2023 09/17/2023 Annual gynecological exam performed. Patient will come back in a year unless there are new symptoms. [email or web address] Not available 09/17/2023 09:33:39 10/17/2024 10/17/2024 Annual gynecological exam performed. Patient will come back in a year unless there are new symptoms. [email or web address] Not available 10/17/2024 10:15:55 Plan of Treatment Reminders Order Date Submit Date Provider Last Modified By Organization Details Last Modified Time Details Appointments None recorded. Lab hormone panel, serum or plasma 2022 023 [facility] (Lab), [address], [place], [address], 3 04:47:47 Referral gastroenter ologist referral [address] [facility], [address], [address], [place], [address], 4 14:20:53 Procedures None recorded. Surgeries None recorded. Imaging MAMMO, screening, digital, bilateral 2022 023 [facility], [address], [address], [place], [address], 4 10:52:34 US, pelvis 2021 022 [email or web address], [address], [place], [address], 17:04:00 US, transvagina l 2021 022 [email or web address] [facility], [address], [place], [address], 17:04:00 Medication Orders None recorded. Patient TargetsNo targets recorded. Patient InstructionsNo instructions recorded. 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 for Screening for malignant neoplasm of colon Referring Physician: Kat Friedman, WORM FARMER, Encounter Date: 09/17/2023 Results Created Date Observation Date Name Description Value Unit Range Abnormal Flag Note LastModifiedBy Organization Detail LastModifiedTime 01/23/20 22 01/22/2022 CBC W/DIF F WBC 7.4 10'3/ uL 3.6-10 .2 Not Available [facility] (Lab) [address], [place], [address], 01/23/2022 03:38:57 01/23/20 22 01/22/2022 CBC W/DIF F RBC 4.80 10'6/ uL (based on docume nted legal sex) 4.10-5 .30 Not Available [facility] (Lab) [address], [place], [address], 01/23/2022 03:38:57 01/23/20 22 01/22/2022 CBC W/DIF F HGB 13.6 g/dL (based on docume nted legal sex) 11.9-1 5.8 Not Available [facility] (Lab) [address], [place], [address], 01/23/2022 03:38:57 01/23/20 22 01/22/2022 CBC W/DIF F HCT 43.8 % (based on docume nted legal sex) 37.4-4 8.3 Not Available [facility] (Lab) [address], [place], [address], 01/23/2022 03:38:57 01/23/20 22 01/22/2022 CBC W/DIF F MCV 92.0 fL 82.0-9 9.0 Not Available [facility] (Lab) [address], [place], [address], 01/23/2022 03:38:57 01/23/20 22 01/22/2022 CBC W/DIF F MCH 29.0 pg 27.0-3 3.0 Not Available [facility] (Lab) [address], [place], [address], 01/23/2022 03:38:57 01/23/20 22 01/22/2022 CBC W/DIF F MCHC 31.0 g/dL 32.0-3 6.0 low Not Available [facility] (Lab) [address], [place], [address], 01/23/2022 03:38:57 01/23/20 22 01/22/2022 CBC W/DIF F RDW 14.0 % 11.0-1 5.0 Not Available [facility] (Lab) [address], [place], [address], 01/23/2022 03:38:57 01/23/20 22 01/22/2022 CBC W/DIF F plt 196 10'3/ uL 150-45 0 Not Available [facility] (Lab) [address], [place], [address], 01/23/2022 03:38:57 01/23/20 22 01/22/2022 CBC W/DIF F MPV 11.3 fL 9.8-12 .7 Not Available [facility] (Lab) [address], [place], [address], 01/23/2022 03:38:57 01/23/20 22 01/22/2022 CBC W/DIF F NRBC's 0.00 % 0 Not Available [facility] (Lab) [address], [place], [address], 01/23/2022 03:38:57 01/23/20 22 01/22/2022 CBC W/DIF F absolute NRBCs 0.0 10'3/ uL 0 Not Available [facility] (Lab) [address], [place], [address], 01/23/2022 03:38:57 01/23/20 22 01/22/2022 CBC W/DIF F neutrophils 59.0 % 37.0-7 2.0 Not Available [facility] (Lab) [address], [place], [address], 01/23/2022 03:38:57 01/23/20 22 01/22/2022 CBC W/DIF F lymphocytes 32.0 % 16.0-4 8.0 Not Available [facility] (Lab) [address] [facility], [place], [address], 01/23/2022 03:38:57 01/23/20 22 01/22/2022 CBC W/DIF F monocytes 6.0 % 4.0-14 .0 Not Available [facility] (Lab) [address], [place], [address], 01/23/2022 03:38:57 01/23/20 22 01/22/2022 CBC W/DIF F eosinophils 2.0 % 0.0-9. 0 Not Available [facility] (Lab) [address], [place], [address], 01/23/2022 03:38:57 01/23/20 22 01/22/2022 CBC W/DIF F basophils 1.0 % 0.0-2. 0 Not Available [facility] (Lab) [address] [facility], [place], [address], 01/23/2022 03:38:57 01/23/20 22 01/22/2022 CBC W/DIF F immature granulocytes 0.0 % no define d refere nce range Not Available [facility] (Lab) [address] [facility], [place], [address], 01/23/2022 03:38:57 01/23/20 22 01/22/2022 CBC W/DIF F absolute neutrophils 4.4 10'3/ uL 1.1-6. 0 Not Available [facility] (Lab) [address] [facility], [place], [address], 01/23/2022 03:38:57 01/23/20 22 01/22/2022 CBC W/DIF F absolute lymphocytes 2.3 10'3/ uL 0.7-3. 4 Not Available [facility] (Lab) [address] [facility], [place], [address], 01/23/2022 03:38:57 01/23/20 22 01/22/2022 CBC W/DIF F absolute monocytes 0.4 10'3/ uL 0.3-1. 0 Not Available [facility] (Lab) [address] [place], [address], 01/23/2022 03:38:57 01/23/20 22 01/22/2022 CBC W/DIF F absolute eosinophils 0.2 10'3/ uL 0.0-0. 6 Not Available [facility] (Lab) [address] [place], [address], 01/23/2022 03:38:57 01/23/20 22 01/22/2022 CBC W/DIF F absolute basophils 0.1 10'3/ uL 0.0-0. 1 Not Available [facility] (Lab) [address] [place], [address], 01/23/2022 03:38:57 01/23/20 22 01/22/2022 CBC W/DIF F absolute immature granulocytes 0.00 10'3/ uL 0.00-0 .10 2021 2:12 AM: P indic ates parti al resul ts on a panel have been relea sed. Addit ional resul ts will follo w. 2021 2:12 AM: This resul t has been final verif ied. No addit ional or cole ed resul ts are expec shobha. Not Available [facility] (Lab) [address] [facility], [place], [address], 01/23/2022 03:38:57 01/23/20 22 01/22/2022 CMP WITH BUN/C REAT RATIO sodium 137 mmol/ L 133-14 6 Not Available [facility] (Lab) [address] [place], [address], 01/23/2022 03:38:57 01/23/20 22 01/22/2022 CMP WITH BUN/C REAT RATIO potassium 4.1 mmol/ L 3.5-5. 1 Not Available [facility] (Lab) [address] [place], [address], 01/23/2022 03:38:57 01/23/20 22 01/22/2022 CMP WITH BUN/C REAT RATIO chloride 102 mmol/ L 98-107 Not Available [facility] (Lab) [address] [place], [address], 01/23/2022 03:38:57 01/23/20 22 01/22/2022 CMP WITH BUN/C REAT RATIO carbon dioxide 28 mmol/ L 21-31 Not Available [facility] (Lab) [address] [place], [address], 01/23/2022 03:38:57 01/23/20 22 01/22/2022 CMP WITH BUN/C REAT RATIO anion gap 7 mmol/ L 4-13 Not Available [facility] (Lab) [address] [facility], [place], [address], 01/23/2022 03:38:57 01/23/20 22 01/22/2022 CMP WITH BUN/C REAT RATIO blood urea nitrogen 12 mg/dL 7-25 Not Available [facility] (Lab) [address] [facility], [place], [address], 01/23/2022 03:38:57 01/23/20 22 01/22/2022 CMP WITH BUN/C REAT RATIO creatinine 0.58 mg/dL 0.60-1 .30 low Not Available [facility] (Lab) [address] [facility], [place], [address], 01/23/2022 03:38:57 01/23/20 22 01/22/2022 CMP WITH BUN/C REAT RATIO egfrcr (CKD-epi 2020) >90 mL/mi n/1.7 3_m2 >=60 Not Available [facility] (Lab) [address] [facility], [place], [address], 01/23/2022 03:38:57 01/23/20 22 01/22/2022 CMP WITH BUN/C REAT RATIO BUN/creatini ne ratio 20.7 . 10.0-2 2.0 Not Available [facility] (Lab) [address] [facility], [place], [address], 01/23/2022 03:38:57 01/23/20 22 01/22/2022 CMP WITH BUN/C REAT RATIO calcium 9.4 mg/dL 8.3-10 .5 Not Available [facility] (Lab) [address] [facility], [place], [address], 01/23/2022 03:38:57 01/23/20 22 01/22/2022 CMP WITH BUN/C REAT RATIO glucose 154 mg/dL 70-100 high Not Available [facility] (Lab) [address] [place], [address], 01/23/2022 03:38:57 01/23/20 22 01/22/2022 CMP WITH BUN/C REAT RATIO protein, total 6.7 g/dL 6.4-8. 3 Not Available [facility] (Lab) [address] [facility], [place], [address], 01/23/2022 03:38:57 01/23/20 22 01/22/2022 CMP WITH BUN/C REAT RATIO albumin 4.3 g/dL 3.5-5. 0 Not Available [facility] (Lab) [address] [facility], [place], [address], 01/23/2022 03:38:57 01/23/20 22 01/22/2022 CMP WITH BUN/C REAT RATIO ALT 32 units /L 9-43 Not Available [facility] (Lab) [address] [facility], [place], [address], 01/23/2022 03:38:57 01/23/20 22 01/22/2022 CMP WITH BUN/C REAT RATIO alkaline phosphatase 60 units /L 34-104 Not Available [facility] (Lab) [address] [facility], [place], [address], 01/23/2022 03:38:57 01/23/20 22 01/22/2022 CMP WITH BUN/C REAT RATIO AST 22 units /L 13-39 Not Available [facility] (Lab) [address] [place], [address], 01/23/2022 03:38:57 01/23/20 22 01/22/2022 CMP WITH BUN/C REAT RATIO bilirubin, total 0.4 mg/dL 0.2-1. 2 Not Available [facility] (Lab) [address] [place], [address], 01/23/2022 03:38:57 01/23/20 22 01/22/2022 BHCG, QUANT ITATI VE B-HCG <0.2 mIU/m L This assay was perfo rmed using [employer] ratio n reage nts and test kits. Value s obtai lianna with other assay metho ds or kits canno t be used inter [facility] . Refer ence Range s: Non-p regna nt, preme nopau lety women : 0.0-5 .3 mIU/m L Postm enopa usal women : 0.0-7 .0 mIU/m L Marcela l Pregn sidra: Gesta terri l Age bHCG Conc. - mIU/m L 3 Weeks 5.8 - 71.7 4 Weeks 9.5 - 750 5 Weeks 217-7 138 6 Weeks 158 - 31,79 5 7 Weeks 3,697 - 162,5 63 8 Weeks 32,06 5 - 149,5 71 9 Weeks 63,80 3 - 151,4 10 10 Weeks 46,50 9 - 186,9 77 12 Weeks 27,83 2 - 210,6 12 14 Weeks 13,95 0 - 62,53 0 15 Weeks 12,03 9 - 70,97 1 16 Weeks 9,040 - 56,45 1 17 Weeks 8,175 - 55,86 8 18 Weeks 8,099 - 58,17 6 Not Available [facility] (Lab) [address] [facility], [place], [address], 01/23/2022 03:38:58 01/23/20 22 01/22/2022 ESTRA DIOL estradiol 91.7 pg/mL This assay was perfo rmed using [employer] reage nts and test kits. Value s obtai lianna with other assay metho ds or kits canno t be used inter [facility] . Femal e Estra diol Range s: Folli cular phase 12.4- 233 pg/mL Ovula tion phase 41.0- 398 pg/mL Lutea l phase 22.3- 341 pg/mL Postm enopa usal< 5-138 pg/mL Healt hy Pregn ant Women 1st Trime ster1 54-32 43 pg/mL 2nd Trime ster1 561-2 1280 pg/mL 3rd Trime ster8 525-> 51519 pg/mL Not Available [facility] (Lab) [address] [facility], [place], [address], 01/23/2022 03:38:58 01/23/20 22 01/22/2022 FSH / LH FSH 6.0 mIU/m L This assay was perfo rmed using [employer] reage nts and test kits. Value s obtai lianna with other assay metho ds or kits canno t be used inter [facility] . Femal es Folli cular : 3.5-1 2.5 mIU/m L Ovula tion: 4.7-2 1.5 mIU/m L Lutea l: 1.7-7 .7 mIU/m L Postm enopa use: 25.8- 134.8 mIU/m L Not Available [facility] (Lab) [address] [place], [address], 01/23/2022 03:38:58 01/23/20 22 01/22/2022 FSH / LH LH 12.0 mIU/m L This assay was perfo rmed using [employer] reage nts and test kits. Value s obtai lianna with other assay metho ds or kits canno t be used inter [facility] . Femal es Mid-F ollic ular: 2.4-1 2.6 mIU/m L Mid-C ycle: 14.0- 95.6 mIU/m L Mid-L uteal : 1.0-1 1.4 mIU/m L Postm enopa use: 7.7-5 8.5 mIU/m L Not Available [facility] (Lab) [address] [place], [address], 01/23/2022 03:38:58 01/23/20 22 01/22/2022 PROLA CTIN prolactin, total 10.20 NG/mL 4.79-2 3.30 This assay was perfo rmed using [employer] reage nts and test kits. Value s obtai lianna with other assay metho ds or kits canno t be used inter [facility] . 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 FINAL DIAGN OSIS: Negat mary for Intra epith elial Jayant torres or Gissel barillas (NIL) . Elect ramy cuevas kalyan d by Tammie Mendez on 09/07 at 1:41 PM ----- ----- ----- ----- ----- ----- ----- ----- ----- ----- ----- ----- ----- ----- ----- ----- ----- ---- HPV RESUL TS: HPV mRNA E6/E7 : No HPV mRNA Detec shobha NOTE: This high risk HPV mRNA assay detec ts fourt een high- risk HPV types (16, 18, 31, 33, 35, 39, 45, 51, 52, 56, 58, 59, 66, 68) witho ut diffe renti ation . COMME NT: Note: This speci men was revie wed by a Cytot echno logis t and/o r Patho logis t (as indic ated in this repor t) after evalu ation using the Thinp rep Imagi ng Syste m. CLINI TORO INFOR MATIO N: Menst rual Statu s: LMP (if appli cable ): Clini toro Histo ry/Pr eviou s Pap: Type of Neopl padmini (if appli cable ): Signi fican t Clini toro Findi ngs: Other Histo ry: Hormo benita (if appli cable ): PAP EDUCA TERRI L NOTE: The Pap Test is a scree nelda test with an inher ent false negat mary rate. Liqui d-bas ed sampl ing may decre ase, but will not elimi delores, false negat mary resul ts. A negat mary resul t does not precl ude the prese nce and/o r devel opmen t of disea se, since the prese nce of abnor mal cells in the sampl e depen ds on the locat ion of the lesio n and sampl ing techn ique. Kevin nued regul ar scree nelda is the best metho d of cance r preve ntion . If repor shobha cytol ogic findi ng do not corre late with physi toro and/o r histo rical findi ngs, furth er inves tigat ion is recom manuela d, as clini av carlos nted. Not Available [facility] [address] [place], [address], 09/07/2022 14:43:27 09/17/20 23 09/17/2023 FSH, LH, ESTRA DIOL estradiol 7.9 pg/mL This assay was perfo rmed using [employer] reage nts and test kits. Value s obtai lianna with other assay metho ds or kits canno t be used inter [facility] . Femal e Estra diol Range s: Folli cular phase 12.4- 233 pg/mL Ovula tion phase 41.0- 398 pg/mL Lutea l phase 22.3- 341 pg/mL Postm enopa usal< 5-138 pg/mL Healt hy Pregn ant Women 1st Trime ster1 54-32 43 pg/mL 2nd Trime ster1 561-2 1280 pg/mL 3rd Trime ster8 525-> 71949 pg/mL Not Available [facility] (Lab) [address] [facility], [place], [address], 09/18/2023 04:47:47 09/17/20 23 09/17/2023 FSH, LH, ESTRA DIOL FSH 31.3 mIU/m L This assay was perfo rmed using [employer] n reage nts and test kits. Value s obtai lianna with other assay metho ds or kits canno t be used inter [facility] . Femal es Folli cular : 3.5-1 2.5 mIU/m L Ovula tion: 4.7-2 1.5 mIU/m L Lutea l: 1.7-7 .7 mIU/m L Postm enopa use: 25.8- 134.8 mIU/m L Not Available [facility] (Lab) [address] [facility], [place], [address], 09/18/2023 04:47:47 09/17/20 23 09/17/2023 FSH, LH, ESTRA DIOL LH 34.0 mIU/m L This assay was perfo rmed using [employer] n reage nts and test kits. Value s obtai lianna with other assay metho ds or kits canno t be used inter [facility] eably . Femal es Mid-F ollic ular: 2.4-1 2.6 mIU/m L Mid-C ycle: 14.0- 95.6 mIU/m L Mid-L uteal : 1.0-1 1.4 mIU/m L Postm enopa use: 7.7-5 8.5 mIU/m L Not Available [facility] (Lab) [address] [facility], [place], [address], 09/18/2023 04:47:47 09/17/20 23 09/17/2023 IMAGE GUIDE D PAP AND HPV REGAR DLESS image guided Pap, HPV regardless of Pap result SEE RESULT S BELOW CASE REPOR T: Cytol ogy Gynec ologi toro Repor t Case: [id number] Autho justina fish Provi tri: Kat Friedman, VIVIANA Oliveira cted: 09/17 1430 Order ing Locat ion: [place] Patho logjeannie Recei niko: 09/20 0603 First Scree n: Marilin Sorenson ret, CT Rescr een: Kenna Asher, CT Speci men: Scree nelda Pap - Image d, Cervi x STATE MENT OF ADEQU ACY: Satis facto ry for evalu ation Trans forma tion zone compo nent prese nt FINAL DIAGN OSIS: Negat mary for Intra epith elial Lesio n or Gissel barillas (NIL) . Elect ramy cuevas kalyan d by Kenna Asher, CT on 09/22 at 6:39 AM ----- ----- ----- ----- ----- ----- ----- ----- ----- ----- ----- ----- ----- ----- ----- ----- ----- ---- HPV RESUL TS: HPV mRNA E6/E7 : No HPV mRNA Detec shobha NOTE: This high risk HPV mRNA assay detec ts fourt een high- risk HPV types (16, 18, 31, 33, 35, 39, 45, 51, 52, 56, 58, 59, 66, 68) witho ut diffe renti ation . COMME NT: This speci men was revie wed by a Cytot echno logis t and/o r Patho logis t (as indic ated in this repor t) after evalu ation using the Thinp rep Imagi ng Syste m. CLINI TORO INFOR MATIO N: Menst rual Statu s: LMP (if appli cable ): Clini toro Histo ry/Pr eviou s Pap: Type of Neopl padmini (if appli cable ): Signi fican t Clini toro Findi ngs: Other Histo ry: Hormo benita (if appli cable ): PAP EDUCA TERRI L NOTE: The Pap Test is a scree nelda test with an inher ent false negat mary rate. Liqui d-bas ed sampl ing may decre ase, but will not elimi delores, false negat mary resul ts. A negat mary resul t does not precl ude the prese nce and/o r devel opmen t of disea se, since the prese nce of abnor mal cells in the sampl e depen ds on the locat ion of the lesio n and sampl ing techn ique. Kevin nued regul ar scree nelda is the best metho d of cance r preve ntion . If repor shobha cytol ogic findi ng do not corre late with physi toro and/o r histo rical findi ngs, furth er inves tigat ion is recom manuela d, as clini av carlos nted. Not Available [facility] (Lab) [address], [place], [address], 09/22/2023 07:45:26 02/05/20 22 02/04/2022 US, pelvi s No observ ation record ed. [email or web address] [facility] [address], [place], [address], 02/04/2022 12:10:50 02/05/20 22 02/04/2022 US, trans vagin al No observ ation record ed. [email or web address] [facility] [address], [place], [address], 02/04/2022 12:11:04 02/05/20 22 02/04/2022 US, pelvi s No observ ation record ed. [email or web address] [address], [place], [address], 02/06/2022 15:55:49 10/22/20 22 10/21/2022 MAMMO , scree nelda, bilat eral No observ ation record ed. [facility] [address], [place], [address], 11/11/2022 19:04:22 03/07/20 24 03/07/2024 MAMMO , scree nelda, digit al, bilat eral No observ ation record ed. [facility] [address], [place], [address], 03/08/2024 14:31:30 Result Notes None recorded. 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 1 21:49:39 Tinea corporis [id number] Completed 201501/22/2022 Tinea corporis; Recorded Elsewhere : No Locati on: [facility] So urce: EHR Chron ic: N Practic e ID: [id number] Bill able Time: 08:45:00 AM [facility] 2 10:27:52 Amenorrh ea [id number] Completed 201701/22/2022 Amenorrhe a;Recorde d Elsewhere : No Locati on: [facility] So urce: EHR Chron ic: N Practic e ID: [id number] Bill able Time: 03:30:00 PM [facility] 2 10:27:47 Adult health examinat ion Completed 201403/19/2021 ROUTINE MEDICAL EXAM;Castro rded Elsewhere : No Locati on: [facility] So urce: EHR Chron ic: N Practic e ID: [id number] Bill able Time: 10:00:00 AM [facility]arr Chung [facility] 1 21:48:47 Pregnanc y test negative [id number] Completed 201203/19/2021 examinati on or test, negative result;Re corded Elsewhere : No Locati on: [facility] So urce: EHR Chron ic: N Practic e ID: [id number] Bill able Time: 01:45:00 PM Starr Chung [facility] 21:49:18 Speciali zed medical examinat ion Completed 201403/19/2021 Gynecolog ical Examinati on;Record ed Elsewhere : No Locati on: [facility] So urce: EHR Chron ic: N Practic e ID: [id number] Bill able Time: 10:00:00 AM [facility] 21:49:42 Finding of body mass index [id number] Completed 201303/19/2021 Body Mass Index 29.0-29.9 , adult;Rec orded Elsewhere : No Locati on: [facility] So urce: EHR Chron ic: N Practic e ID: [id number] Bill able Time: 11:30:00 AM [facility] 21:49:12 Removal of intraute rine device Completed 201503/19/2021 Encounter for removal of intrauter ine contracep tive device;Re corded Elsewhere : No Locati on: [facility] So urce: EHR Chron ic: N Practic e ID: [id number] Bill able Time: 08:45:00 AM [facility] 21:49:25 Insertio n of intraute rine contrace ptive device Completed 201203/19/2021 INSERTION OF IUD;Recor ded Elsewhere : No Locati on: [facility] So urce: EHR Chron ic: N Practic e ID: [id number] Bill able Time: 01:45:00 PM [facility] 21:49:06 Screenin g for malignan t neoplasm of rectum Completed 201803/19/2021 Encounter for screening for malignant neoplasm of rectum;Re corded Elsewhere : No Locati on: [facility] So urce: EHR Chron ic: N Practic e ID: [id number] Bill able Time: 09:30:00 AM Starr Chung [facility] 21:49:[address] Concept Completed 201703/19/2021 Encntr for general adult medical exam w/o abnormal findings; Recorded Elsewhere : No Locati on: [facility] So urce: EHR Chron ic: N Practic e ID: [id number] Bill able Time: 10:00:00 AM Starr Chung [facility] 21:49:36 Family planning surveill ance Completed 201303/19/2021 Contracep tive surveilla nce, unspecifi ed;Record ed Elsewhere : No Locati on: [facility] So urce: EHR Chron ic: N Practic e ID: [id number] Bill able Time: 11:00:00 AM [facility] [facility] 21:48:50 Female genital organ symptoms [id number] Completed 201403/19/2021 Pelvic pain;Castro rded Elsewhere : No Locati on: [facility] So urce: EHR Chron ic: N Practic e ID: [id number] Bill able Time: 10:00:00 AM Starr Chung [facility] 21:48:55 Screenin g for malignan t neoplasm of cervix Completed 201103/19/2021 Screening for malignant neoplasms of the cervix;Re corded Elsewhere : No Locati on: [facility] So urce: EHR Chron ic: N Practic e ID: [id number] Bill able Time: 11:00:00 AM Starr Chung [facility] 21:49:29 Pruritus ani [id number] Completed 201801/22/2022 Pruritus ani;Recor ded Elsewhere : No Locati on: [facility] So urce: EHR Chron ic: N Practic e ID: [id number] Bill able Time: 09:30:00 AM Starr Chung [facility] 2 10:27:51 Obesity [id number] Completed 201301/22/2022 Obesity;R ecorded Elsewhere : No Locati on: [facility] So urce: EHR Chron ic: N Practic e ID: [id number] Bill able Time: 11:30:00 AM Starr Chung [facility] 2 10:27:49 Problem Notes None recorded. Procedures Surgical History Date Name Laterality Status Provider Name and Address Organization Details Recorded Time 03/07/20 24 Date of Last Mammogram completed [facility] 10/17/2024 10:21:02 11/30/19 24 Date of Last Colonoscopy completed [facility] 10/17/2024 10:23:47 09/17/20 23 Date of Last Pap Smear completed [facility] 10/17/2024 10:19:51 11/08/19 13 arthroscopy of hip completed [facility] 02/26/2021 17:33:40 11/08/[address] [facility] 02/26/2021 17:32:59 11/08/19 [address] [facility] 02/26/2021 17:32:49 11/08/19 [address] [facility] 02/26/2021 17:32:38 11/08/19 00 excision of lymph node completed [facility] 02/26/2021 17:36:08 11/08/18 76 procedure on ovary completed [facility] 02/26/2021 17:34:54 Imaging Results Imaging Date Name Status LastModified by Organization Details LastModified Time 02/04/2022 US, pelvis completed [email or web address] [facility] [address], [place], [address], 02/04/2022 12:10:50 02/04/2022 US, transvaginal completed [email or web address] [facility] [address], [place], [address], 02/04/2022 12:11:04 02/04/2022 US, pelvis completed [email or web address] [address] [address], [place], [address], 02/06/2022 15:55:49 10/21/2022 MAMMO, screening, bilateral completed [address], [place], [address], 11/11/2022 19:04:22 03/07/2024 MAMMO, screening, digital, bilateral completed [address], [place], [address], 03/08/2024 14:31:30 Procedure Notes None recorded. Medical Equipment None Reported. Allergies No known drug allergies Medications Name Sig Start Date Stop Date Status Note LastModified by Organization Details LastModified Time doxycycli ne hyclate 100 mg capsule 02/05 completed Not Available Not Available Not Available metoprolo l succinate ER 50 mg tablet,ex tended release 24 hr TAKE 1 TABLET BY MOUTH EVERY DAY active Not Available Not Available No t Available Lotrisone 1 %-0.05 % topical cream apply by topical route 2 times every day for 2 weeks to the affected and surround ing areas of skin in the morning and evening 05/29 completed Prescrib ed Elsewher e: No Locat ion: [place] odify By: nancy tz Encou nter DateTime : 05/16/20 19 09:30:00 AM Not Available Not Available Not Available hydrocodo ne 5 mg-acetam inophen 325 mg tablet TAKE 1 TABLET BY MOUTH EVERY 8 HOURS NEEDED FOR PAIN 10/17 completed Not Available Not Available Not Available Claritin 10 mg tablet Take 1 tablet every day by oral route. 10/17 completed Not Available Not Available Not Available ibuprofen 200 mg capsule take 1 capsule by oral route every 6 hours as needed 10/17 completed Prescrib ed Elsewher e: Yes [facility] By: pedro samuel DateTime : 11/16/19 12 11:00:00 AM Not Available Not Available Not Available prednison e 20 mg tablet 02/05 completed Not Available Not Available Not Available Diflucan 150 mg tablet take 1 tablet by oral route once 03/19 completed Prescrib ed Elsewher e: No Locat ion: [facility] odify By: nancy Schreiber nter DateTime : 05/16/20 19 09:30:00 AM Not Available Not Available Not Available Accu-Chek Softclix Lancets USE DIRECTED TO MONITOR GLUCOSE DAILY 10/17 completed Not Available Not Available Not Available Flonase 50 mcg/actua tion nasal spray,chris pension active Not Available Not Available Not Available adapalene 0.1 % topical cream 10/17 completed Not Available Not Available Not Available tamsulosi n 0.4 mg capsule TAKE 1 CAPSULE BY MOUTH DAILY 10/17 completed Not Available Not Available Not Available dexametha sone 1 mg tablet TAKE 1 TABLET BY MOUTH NIGHT BEFORE LABS BETWEEN 11PM-12A M. TAKE WITH MILK. HAVE BLOOD DRAWN NEXT MORNING BETWEEN 7-9AM 10/17 completed Not Available Not Available Not Available benzonata te 100 mg capsule 02/05 completed Not Available Not Available Not Available Claritin 5 mg/5 mL oral solution take 10 millilit er by oral route every day 03/19 completed Prescrib ed Elsewher e: Yes Loca tion: [facility] odify By: pedro samuel DateTime : 11/16/19 12 11:00:00 AM Not Available Not Available Not Available lisinopri l 10 mg tablet TAKE 1 TABLET BY MOUTH DAILY active Not Available Not Available No t Available Baby Aspirin 81 mg chewable tablet Chew 1 tablet every day by oral route. active Not Available Not Available No t Available metoprolo l succinate ER 25 mg tablet,ex tended release 24 hr TAKE 1 TABLET BY MOUTH EVERY DAY 02/05 completed Not Available Not Available Not Available Nasonex 50 mcg/actua tion [place] spray 2 spray by intranas al route every day in each nostril 05/16 completed Prescrib ed Elsewher e: Yes Loca tion: Matt yaneli [facility] odify By: misbah samuel DateTime : 10/23/20 13 01:30:00 PM Not Available Not Available Not Available lisinopri l 10 mg-hydroc hlorothia zide 12.5 mg tablet take 1 tablet by oral route every day 05/16 completed Prescrib ed Elsewher e: Yes Loca tion: Yokastacheyanne yaneli [facility] odify By: misbah samuel DateTime : 10/23/20 13 01:30:00 PM Not Available Not Available Not Available Anusol-HC 25 mg rectal supposito ry insert 1 supposit ory by rectal route 2 times every day for 2 weeks 05/29 completed Prescrib ed Elsewher e: No Locat ion: [place] [facility] odify By: nancy Schreiber ntjeane DateTime : 05/16/20 19 09:30:00 AM Not Available Not Available Not Available ketoconaz ole 2 % topical cream apply by topical route every day to the affected area(s) 04/26 completed Prescrib ed Elsewher e: No Locat ion: [place] [facility] odify By: jori samuel DateTime : 12/31/19 16 08:45:00 AM Not Available Not Available Not Available ondansetr on 4 mg disintegr ating tablet DISSOLVE 1 TABLET ON THE TONGUE EVERY 8 HOURS NEEDED FOR NAUSEA OR VOMITING 10/17 completed Not Available Not Available Not Available multivita min capsule take 1 capsule by oral route every day active Prescrib ed Elsewher e: Yes Loca tion: Matt yaneli [facility] odify By: jori samuel DateTime : 04/26/20 17 10:30:00 AM Not Available Not Available Not Available metformin ER 500 mg tablet,ex tended release 24 hr TAKE 2 TABLETS BY MOUTH DAILY 10/17 completed Not Available Not Available Not Available Stanback Headache Powder 650 mg oral packet 01/22 completed Prescrib ed Elsewher e: Yes Loca tion: Yokatsacheyanne yaneli [facility] odify By: pedro samuel DateTime : 11/16/19 12 11:00:00 AM Not Available Not Available Not Available Ventolin HFA 90 mcg/actua tion aerosol inhaler active Not Available Not Available Not Available Vitamin 27 mg iron-0.8 mg tablet take 1 tablet by oral route every day 12/31 completed Prescrib ed Elsewher e: Yes [facility] By: jori samuel DateTime : 11/16/19 12 11:00:00 AM Not Available Not Available Not Available nystatin 50 million unit oral powder take by oral route 4 times every day in 4-6 ounces of water 05/16 completed Prescrib ed Elsewher e: Yes [facility]oca [facility] By: misbah samuel DateTime : 04/26/20 17 10:30:00 AM Not Available Not Available Not Available nitrofura ntoin monohydra te/macroc rystals 100 mg capsule TAKE 1 CAPSULE BY MOUTH EVERY 12 HOURS FOR 5 DAYS 10/17 completed Not Available Not Available Not Available B-12 Plus 5,000 mcg-100 mcg sublingua l tablet 12/31 completed Prescrib ed Elsewher e: Yes Loca tion: Yokastacheyanne [facility] odify By: jori samuel DateTime : 12/06/19 13 01:00:00 PM Not Available Not Available Not Available Accu-Chek Guide test strips USE TO MONITOR GLUCOSE DAILY 10/17 completed Not Available Not Available Not Available Rhofade 1 % topical cream APPLY TO face DAILY IN THE MORNING 10/17 completed Not Available Not Available Not Available metoprolo l succinate ER 50 mg capsule sprinkle, ext. release 24 hr 02/05 completed Not Available Not Available Not Available Accu-Chek Guide Me Glucose Meter USE 1 LANCET ONCE DAILY 10/17 completed Not Available Not Available Not Available Ozempic 1 mg/dose (4 mg/3 mL) subcutane ous pen injector INJECT 1MG SUBCUTAN EOUS WEEKLY 10/17 completed Not Available Not Available Not Available Ozempic 2 mg/dose (8 mg/3 mL) subcutane ous pen injector INJECT 0.25 MG EVERY WEEK 09/01 completed Not Available Not Available Not Available Mounjaro 7.5 mg/0.5 mL subcutane ous pen injector ADMINIST ER 7.5 MG UNDER THE SKIN WEEKLY 10/17 completed Not Available Not Available Not Available Mounjaro 5 mg/0.5 mL subcutane ous pen injector INJECT 1 SYRINGE SUBCUTAN EOUSLY ONCE A WEEK 10/17 completed Not Available Not Available Not Available Mounjaro 10 mg/0.5 mL subcutane ous pen injector INJECT 1 SYRINGE SUBCUTAN EOUSLY ONCE A WEEK active Not Available Not Available No t Available Mounjaro 2.5 mg/0.5 mL subcutane ous pen injector INJECT 2.5MG UNDER THE SKIN EVERY WEEK X 4 WEEKS 10/17 completed Not Available Not Available Not Available Vitals Date Recorded Body height Body mass index (BMI) Body weight Provider Name and Address Organization Details Last Updated DateTime 02/05/2022 158.75 cm 38.9 kg/m2 06897.67 g Starr Chung [facility] 02/05/2022 10:54:29 Date Recorded Systolic blood pressure Diastolic blood pressure Provider Name and Address Organization Details Last Updated DateTime 02/05/2022 122 mm[Hg] 80 mm[Hg] Wendy Travis, [facility] [address], [place], [address], [facility] 02/05/2022 11:15:38 Date Recorded Body height Body mass index (BMI) Body weight Systolic blood pressure Diastolic blood pressure Provider Name and Address Organization Details Last Updated DateTime 09/01/2022 158.75 cm 38.3 kg/m2 95238.17 g 128 mm[Hg] 76 mm[Hg] Starr Chung [facility] 10/25/202 2 10:00:18 Date Recorded Body weight Systolic blood pressure Diastolic blood pressure Provider Name and Address Organization Details Last Updated DateTime 09/17/2023 45782.92 g 123 mm[Hg] 81 mm[Hg] Starr Ren [facility] 09/17/2023 09:34:51 Date Recorded Body height Body mass index (BMI) Body weight Systolic blood pressure Diastolic blood pressure Provider Name and Address Organization Details Last Updated DateTime 10/17/2024 158.75 cm 38.2 kg/m2 61715.58 g 125 mm[Hg] 81 mm[Hg] Eveline Luna [facility] 4 10:16:47 Social History Question Answer Notes LastModified by Organizat ion Details LastModified Time Tobacco Smoking Status Never Smoker Starr Chung [facility] 09/01/2022 10:01:36 Do You Have An Advance Directive? No Information n ot available 02/05/2022 What Is Your Level Of Alcohol Consumption? None Information not available 03/19/2021 Are You Blind Or Do You Have Difficulty Seeing? No Information n ot available 03/19/2021 What Is Your Level Of Caffeine Consumption? Moderate Information not available 09/01/2022 How Much Tobacco Do You Chew? None Information not available 02/05/2022 In The 14 Days Before Symptom Onset, Have You Had Close Contact With A Laboratory-confirm ed COVID-19 While That Case Was Ill? No Information n ot available 02/05/2022 In The 14 Days Before Symptom Onset, Have You Had Close Contact With A Person Who Is Under Investigation For COVID-19 While That Person Was Ill? No Information not available 02/05/2022 Have You Been To An Area Known To Be High Risk For COVID-19? No Information not available 02/05/2022 Are You Deaf Or Do You Have Serious Difficulty Hearing? No Information not available 03/19/2021 What Type Of Diet Are You Following? REGULAR Information n ot available 03/19/2021 What Is The Highest Grade Or Level Of School You Have Completed Or The Highest Degree You Have Received? 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 Yes Information not available 09/01/2022 Do You Use Protection During Sex? No Information not available 02/05/2022 Do You Use Your Seat Belt Or Car Seat Routinely? Yes Information not available 03/19/2021 Do You Have Smoke And Carbon Monoxide Detectors In Your Home? Yes Information not available 03/19/2021 How Much Tobacco Do You Smoke? No Information not available 02/05/2022 Do You Feel Stressed (tense, Restless, Nervous, Or Anxious, Or Unable To Sleep At Night)? [id number] Information not available 09/01/2022 Do You Use Any Illicit Or Recreational Drugs? No Information not available 03/19/2021 Do You Use Sunscreen Routinely? Yes Information not available 03/19/2021 Have You Used IV Drugs? No Information not available 02/05/2022 Sex: Female Functional Status Question Answer Note LastModified by Organizat ion Details LastModified Time Do you have difficulty walking or climbing stairs? No Information not available 09/01/2022 Are you able to walk? YESWOREST Information not available 03/19/2021 Are you able to care for yourself? Yes Information not available 09/01/2022 Do you have difficulty dressing or bathing? No Information not available 09/01/2022 What is your exercise level? Occasional Information not available 03/19/2021 Mental Status None recorded. Family History Relationship Description Onset Age of this Age Resolved Age Notes LastModified by Organization Details LastModified Time Mother Crohn's disease Not available 2023 10:09:54 Brother Hypertensive disorder Not available 2021 11:25:53 Brother Kidney disease Not available 2021 11:25:53 Maternal Grandmother Malignant tumor of breast Not available 2021 11:25:53 Father Diabetes mellitus Not available 2021 11:25:53 Father Hypertensive disorder Not available 2021 11:25:53 Medical History Condition Response Allergies (Food, seasonal, environmental ) N Other N Breast Cancer N Drug/Latex Allergies/Reactions N Blood Transfusion N Dermatologic Disorders N Lung Disease N Defects or Inherited Disease N Breast Problem N Gestational Diabetes N Hematologic disorders N Anesthesia Complications N History of STI N Deep Vein Thrombosis N Polycystic ovary syndrome N Anxiety Disorder N Autoimmune disease N Arthritis N Infertility N Polyps N Acid Reflux (GERD) N History of abnormal pap N Cancer N Stroke N Varicosities N Neurologic/Epilepsy N Endometriosis N High Cholesterol N Headaches N Fibromyalgia N Kidney Disease N Heart Problems N Kidney or Bladder Problems N Thyroid Problems N GI Problems N Eating Disorder N Anemia N Art (IVF or FET) N Psychiatric Illness N Ovarian Cancer N Diabetes Y Pulmonary (TB, Asthma) N Hepatitis/Liver Disease N No Past Medical History N Eczema N Urinary Tract Infection N Abuse/Domestic Violence N Asthma N Trauma/Violence N Depression/ depression N Heart Disease N Pre-Eclampsia N Hypertension Y Osteoporosis N Thrombophilias N Gynecological History Statement/Question Response Abnormal Pap N Flow Heavy Date of Last Mammogram 03/07/2024 Date of LMP 09/19/2024 N On BCP's at Conception? N STIs/STDs N Was last menstrual period normal Y HPV Vaccine N Duration of Flow (days) 7 Current Control Method Partner Vas ectomy Age at First Child 28 Are cycles usually normal N Date of Last Colonoscopy 11/30/2023 Frequency of Cycle (Q days) Sexually Active? Y Menses Monthly N Age of first menstrual cycle 14 Date of Last Pap Smear 09/17/2023 Sexual Problems? N LMP Definite N Obstetrics History GPAL:G 1 P 0 1 0 1 Type Value Premature 1 Living 1 Total 1 Past Encounters Encounter ID Performer Location Encounter Start Date Encounter Closed Date Diagnosis/Indication Diagnosis SNOMED-CT Code Diagnosis ICD10 Code Diagnosis Note [id number] Wendy Travis [facility] [address] [address] 03/20/2021 12:13:38 03/21/2021 11:22:33 Gynecologic examination 43296357 Z01.419 Suggested Calcium with Vitamin D 1200-1500m g daily. Patient advised to get an annual flu shot in the fall and she could obtain at [facility] or [facility] take care clinic. Also to obtain TDap vaccinatio n if you have not had one in the last 10 years. Recommend yearly mammograms . Encouraged monthly self breast exams. Encourage safe sexual practices, to use condoms and limit partners if not already in a monogamous relationsh ip. Engage in daily exercise of low impact aerobic exercise 45-60 minutes 4-5 times weekly. Avoid tobacco and illicit drugs as well as using moderation with alcohol intake less than 1-2 8 oz beverages daily. This lifestyle behavior pattern will lead to less health conditions and longer life span. If BMI greater than 25 weight watchers or dietary consult advised. All questions have been answered. Patient appears to understand informatio n, but if you have any questions please call or respond to this email. Pap/hpv sent declined std Mammo ordered Menorrhagia [id number] N9 2.0 Heavy menses but not excessive. Doesn't want hormonal interventi on. We discussed endo ablation. She wants to consider & will call for consultati on when ready to move forward with ablation. [id number] Wendy Travis , [facility] [address] [address] 01/22/2022 10:57:03 01/22/2022 12:38:36 Secondary amenorrhea [id number] N91.1 Today we discussed the possibilit y of perimenopa use to menopause transition ; however, her HgbA1c levels are higher which could also effect ovulatory function. She is having some lower left flank/pelv ic pain but has a hx of kidney stones and has an appt to see a urologist. 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 Understand ing verbalized .Time spent in visit is a total of 26 mins with at least 50% of visit consisting of counseling and review of plan of care.Addit ional precaution mejia measures were taken to minimize potential exposure to the Covid-19 virus during this patient s visit, including available hand disc pad plate filler upon arrive, temperatur e check and being asked a series of screening questions. All staff wore face coverings during this encounter, as well as provided additional cleaning and sanitizing of all surfaces, including countertop s, pens, chairs, door handles, light switches, etc, prior to and following the patient s visit. [id number] Chava Mcnulty MD [facility] [address],[facility] [place] [address] 02/04/2022 10:33:47 02/04/2022 11:25:03 Pain in pelvis 26022155 R10.2 [id number] Wendy Travis [facility] [address],[facility] [place] [address] 02/05/2022 10:42:55 02/05/2022 11:41:42 Irregular periods [id number] N92.6 TVUS reviewed We discussed options of Mirena IUD/Endome trial ablation moving forward for likely perimenopa use irregular periods (had a period since she was last seen). Counseled on both these options with h/o's given for additional home review.She would like to consider these options & will contact us in regards to which direction she would like to head. 1. Mirena IUDDiscuss ed all control options and pt would like to CONSIDER mirena IUD. I have discussed in detail all risks and benefits including risk of infection and perforatio n. She understand s she will need to contact office with next menses or may abstain. Aware of need to verify with insurance device coverage. Literature given. All questions answered to patient satisfacti on. 2. Endometria l ablationWi ll need an MD consult if wants to pursue this option. Time spent in visit is a total of 15 mins with at least 50% of visit consisting of counseling and review of plan of care.Addit ional precaution mejia measures were taken to minimize potential exposure to the Covid-19 virus during this patient s visit, including available hand disc pad plate filler upon arrive, temperatur e check and being asked a series of screening questions. All staff wore face coverings during this encounter, as well as provided additional cleaning and sanitizing of all surfaces, including countertop s, pens, chairs, door handles, light switches, etc, prior to and following the patient s visit. [id number] Wendy Travis [facility] [address] [address] 09/01/2022 09:47:36 09/01/2022 13:32:53 Gynecologic examination [id number] Z01.419 Z11.51 Suggested Calcium with Vitamin D 1200-1500m g daily. Patient advised to get an annual flu shot in the fall and she could obtain at [facility] or [facility] care clinic. Also to obtain TDap vaccinatio n if you have not had one in the last 10 years. Recommend yearly mammograms . Encouraged monthly self breast exams. Encourage safe sexual practices, to use condoms and limit partners if not already in a monogamous relationsh ip. Engage in daily exercise of low impact aerobic exercise 45-60 minutes 4-5 times weekly. Avoid tobacco and illicit drugs as well as using moderation with alcohol intake less than 1-2 8 oz beverages daily. This lifestyle behavior pattern will lead to less health conditions and longer life span. If BMI greater than 25 weight watchers or dietary consult advised. All questions have been answered. Patient appears to understand informatio n, but if you have any questions please call or respond to this email. Pap/hpv sentSTD Screen declinedGe netic Screen discussedC olon Screen PCPDexa Screen naRoutine Labs PCPRefer for endo-ablat ion consult for heavy cycles as previously discussed. [id number] CANDI Herrera [facility] [address] [address] 09/17/2023 09:28:38 09/20/2023 10:31:59 Gynecologic examination [id number] Z01.419 WWEBC - partner with vasectomyp ap updatedSTI testing declinedma mmogram order givenrefer ral for screening colonoscop yUTD with PCP for routine labsRTC in 1 yr or sooner if needed Suggested Calcium with Vitamin D daily. Patient advised to get an annual flu shot in the fall and she could obtain at [facility] or [facility] care clinic. Also to obtain TDap vaccinatio n if you have not had one in the last 10 years. Recommend yearly mammograms . Encouraged monthly self breast exams. Encourage safe sexual practices, to use condoms and limit partners if not already in a monogamous relationsh ip. Engage in daily exercise of low impact aerobic exercise 45-60 minutes 4-5 times weekly. Avoid tobacco and illicit drugs as well as using moderation with alcohol intake less than 1-2 8 oz beverages daily. This lifestyle behavior pattern will lead to less health conditions and longer life span. If BMI greater than 25 weight watchers or dietary consult advised. All questions have been answered. Patient appears to understand informatio n, but if you have any questions please call or respond to this email. Screening for malignant neoplasm of colon [id number] Z12.11 Screening for malignant neoplasm of breast [id number] Z12.39 Perimenopausal state 181 [id number] Z78.0 discussed the perimenopa usal transition , continue to track cycles, precaution s reviewedla bs ordered [id number] CANDI Herrera Ranier [address] [address] 10/17/2024 10:09:49 10/17/2024 12:46:28 Gynecologic examination [id number] Z01.419 WWEBC - partner with vasectomyP ap - not indicated todaySTI screen - declinedMa mmogram - order givenColon cancer screening - UTDRoutine labs - UTD/PCPRTC in 1 yr or sooner if needed Suggested Calcium with Vitamin D daily. Patient advised to get an annual flu shot in the fall and she could obtain at local pharmacy. Also to obtain TDap vaccinatio n if you have not had one in the last 10 years. Recommend yearly mammograms . Encouraged monthly self breast exams. Encourage safe sexual practices, to use condoms and limit partners if not already in a monogamous relationsh ip. Engage in regular exercise. Avoid tobacco and illicit drugs. This lifestyle behavior pattern will lead to less health conditions and longer life span. If BMI greater than 25 dietary consult advised. All questions have been answered. Health Concerns Section Related Observation LastModified by Organization Detai ls LastModified Time None Recorded Concern Status LastModified by Organization Details LastModified Time None Recorded Advance Directives Directive N: Payers Encounter Date Sequence Insurance Name Policy Number Policy Mendez Covered Member ID Mendez Member ID Guarantor Name 02/04/2022 1 [place] [id number] Bello Bran [id number] Gabriela Bran 02/05/2022 1 [place] [id number] Bello Bran [id number] Gabriela Bran 09/01/2022 1 [place] [id number] Bello Bran [id number] Gabriela Bran 09/17/2023 1 [place] [id number] Bello Ramosky [id number] 03 Gabriela Ramosky 10/17/2024 1 [place] [id number] Bello Bran [id number] Gabriela Bran Notes Date Note Type Note Provider Name and Address Organization Details Recorded Time 2 text/html Here today for TVUS review. DANIELE Sanches [address], [place], [address], [facility] 02/05/2022 11:23:09 2 text/html Annual GYNReported bypatient.Menstrual cycle:Menorrhagia Urinary symptoms:No hematuria; No incontinence Vulva:No genital lesion Vagina:Normal vaginal discharge Breast:No breast pain; No breast lump; No nipple discharge Current Contraception:Partner had vasectomy Sexual complaints:No sexual complaints; No pain during intercourse; Normal libido Menopausal Symptoms:No menopausal symptoms; Normal vaginal lubrication Psychological symptoms:No depression; No anxiety; No PMDD Preventive measures:Encourage self breast examination; Encourage regular exercise; Encourage no tobacco use; Encourage regular mammograms starting age 40; Followed with yearly pap smears; Needs to schedule mammogram RICARDO Sanches [address], [place], [address], [facility] 09/01/2022 11:51:53 3 text/html Annual GYNReported bypatient.Menstrual cycle:Normal menses Urinary symptoms:No hematuria; No incontinence Vulva:No genital lesion Vagina:Normal vaginal discharge Breast:No breast pain; No breast lump; No nipple discharge Current Contraception:Partner had vasectomy Sexual complaints:No sexual complaints; No pain during intercourse; Normal libido Menopausal Symptoms:No menopausal symptoms; Normal vaginal lubrication Psychological symptoms:No depression; No anxiety; No PMDD Preventive measures:Encourage self breast examination; Encourage regular exercise; Encourage no tobacco use; Encourage regular mammograms starting age 40Notes:perimenopausal, LMP 03/17/2023last pap 03/20/21 - normal CANDI Herrera [address], [place], [address], [facility] 09/20/2023 09:45:36 4 text/html Annual GYNReported bypatient.Menstrual cycle:Perimenopausal Urinary symptoms:No hematuria; No incontinence Vulva:No genital lesion Vagina:Normal vaginal discharge Breast:No breast pain; No breast lump; No nipple discharge Sexual complaints:No sexual complaints; No pain during intercourse; Normal libido Menopausal Symptoms:No menopausal symptoms; Normal vaginal lubrication Psychological symptoms:No depression; No anxiety; No PMDD Preventive measures:Encourage self breast examination; Encourage regular exercise; Encourage no tobacco use; Encourage regular mammograms starting age 40Notes:49yo wweperimenopausalBC - partner with vasectomylast pap 09/2023 : nilm, HPV (-)mammogram last 4colonoscopy UTD 2023 CANDI Herrera [address], [place], [address], [facility] 10/17/2024 12:43:52 OBGyn Episode Ob Episode Information Episode Created Date Number of Fetuses Patient Bloodtype Patient rh Status Prepregnancy Weight lbs Domestic Partner Domestic Partner Phone Father Name Graphic Design Assistant Status 02/27/20 21 1 CLOSED Fetus Data First Name Last Name Admitted to NICU Weight (g) Sex Living Outcome Pediatric Complications Fetus ID Race Codes Race Delivery Type 1955.88 8704 M Prematur e 9316 Primary Arturo Calculation Initial Arturo Date Initial Exam Date Initial Exam Provider Initial Ultrasound Date Last Menstrual Period Date Ultra Sound Weeks Gestation 0 Eighteen To Twenty Week Arturo Update Ultra Sound Date Fundal Height At Umbil Quickening Date Ultra Sound Latest Weeks Gestation Final Arturo Confirmed By Final Arturo Confirmed Date Final Arturo Date Ultra Sound Latest Days Gestation 0 0 Menstrual History Last Menstrual Date Menses Monthly On Bcp Conception Prior Menses Frequency Hcg Plus Date Menarche Onset Age Delivery Information Delivery Date Delivery Type Labor Anesthesia Weeks Gestation Incision Type Labor Labor Length Hrs Delivered By Post Complications Tubal Sterilization Discharge Date Comments 4 33 Discharge Information Feeding Method Contraceptive Method Maternal HG B and HCT Levels
--- OUTSIDE RECORDS SUMMARY | 2025-03-08 09:18 | XMS_ITS | Clinical Summary ---
Author Organization [facility] [employer] Address [address] [place] [address] Care Team Providers Care Journalism Instructor Name Role Phone Gladys Boateng MD Primary Care Provider [phone] Source Comments [facility] [employer],[facility] and Associated Physician Practices is amultiple site organization consisting of ambulatory clinics and hospital sitesin [place], [place], [place] and [place]. This disclosure is being madepursuant to the Care Everywhere program and may not contain all information available regarding this patient. Last updated 18.[employer] [employer] Allergies No known active allergies Medications * Be aware that medications may not be up to date on this document. Alwaysverify current medications with the patient. LISINOPRIL-HYDRO CHLOROTHIAZIDE PO Active aspirin (ASPIRIN) 81 MG tablet Take 81 mg by mouth once daily Active Mometasone Furoate (NASONEX NA) Active multivitamin daily (THERAGRAN) tablet Take 1 tablet by mouth daily with food Active RaNITidine HCl (ZANTAC PO) Active Family History Medical History Relation Name Comments Diabetes - Type 2 Father Gout Father Crohn's Disease Mother Relation Name Status Comments Father Mother Social History Tobacco Use Types Packs/Day Years Used Date Smoking Tobacco: Never Smokeless Tobacco: Never Comments No Sex and Gender Information Value Date Recorded Sex Assigned at Not on file Legal Sex Female 10:21 PM CDT Gender Identity Not on file Sexual Orientation Not on file Last Filed Vital Signs Vital Sign Reading Time Taken Comments Blood Pressure 122/72 03/13/2018 2:01 PM CDT Pulse 87 03/13/2018 2:01 PM CDT Temperature 36.7 C (98.1 F) 03/13/2018 2:01 PM CDT Respiratory Rate 16 03/13/2018 2:01 PM CDT Oxygen Saturation 98% 03/13/2018 2:01 PM CDT Inhaled Oxygen Concentration - - Weight 86.2 kg (190 lb) 03/13/2018 2:01 PM CDT Height 160 cm (5' 3 ) 03/13/2018 2:01 PM CDT Body Mass Index 33.66 03/13/2018 2:01 PM CDT Plan of Treatment Health Maintenance Due Date Last Done Comments COLOGUARD (AGES 45-75) - COL ON CA SCREENING 1976 COLON MONITORING 1976 COLONOSCOPY - COLON CA SCREENING 1976 CT COLONOGRAPHY - COLON CA SCREENING 1976 Colorectal Cancer Screening 1976 FIT - COLON CA SCREENING 1976 FLEX SIG - COLON CA SCREENING 1976 LIPID TESTING 1976 MAMMOGRAM 1976 PAP SMEAR 1976 HIV SCREENING 1991 HEPATITIS C SCREENING 06/22/1994 DTAP/TDAP/TD VACCINES (1 - Tdap) 1995 HEPATITIS B VACCINE (1 of 3 - 19+ 3-dose series) 1995 SCREENING FOR DIABETES 09/12/2017 COVID-19 VACCINE ( - 2023-2 5 season) 2024 DEPRESSION SCREENING 11/08/2024 INFLUENZA VACCINE (Season Ended) 2025 ZOSTER VACCINE (1 of 2) 2026 HIB VACCINE Aged Out No longer eligi ble based on patient's age to complete this topic HPV VACCINE Aged Out No longer eligi ble based on patient's age to complete this topic MENINGOCOCCAL (Group B) VACC INE SHARED DECISION-MAKING Aged Out No longer eligibl e based on patient's age to complete this topic MENINGOCOCCAL GROUPS A/C/Y/W VACCINE Aged Out No longer eligible b ased on patient's age to complete this topic PNEUMOCOCCAL VACCINE Aged Out No long er eligible based on patient's age to complete this topic Insurance [facility] SEL[employer] PA[employer] NO INSURANCE Member Subscriber Plan / Payer (Ef fective for All Dates) Name:Melisa Bran Member ID:Not on file Relation to Subscriber:Not on file Name:MELISA BRAN Subscriber ID:Not on file Address: [address] [place] [phone] Payer ID:Not on file Group ID:Not on file Type:Self Pay Address: [place], [place] [facility] SELF PAY NO INSURANCE Member Subscriber Plan / Payer (Ef fective for All Dates) Name:Melisa Bran Member ID:Not on file Relation to Subscriber:Not on file Name:MELISA BRAN Subscriber ID:Not on file Address: [address] [place] [phone] Payer ID:Not on file Group ID:Not on file Type:Self Pay Address: [place], [place] [facility] SELF PAY NO INSURANCE Member Subscriber Plan / Payer (Ef fective for All Dates) Name:Melisa Bran Member ID:Not on file Relation to Subscriber:Not on file Name:MELISA BRAN Subscriber ID:Not on file Address: [address] [place] [phone] Payer ID:Not on file Group ID:Not on file Type:Self Pay Address: [place], [place] [facility] SELF PAY NO INSURANCE Member Subscriber Plan / Payer (Ef fective for All Dates) Name:Melisa Bran Member ID:Not on file Relation to Subscriber:Not on file Name:MELISA BRAN Subscriber ID:Not on file Address: [address] [place] [phone] Payer ID:Not on file Group ID:Not on file Type:Self Pay Address: [place], [place] Care Teams Journalism Instructor Relationship Specialty Start Date End Date Gladys Boateng MD [address] [place] [address] PCP - General Family Medicine 09/12/17
--- OUTSIDE RECORDS SUMMARY | 2025-03-08 09:18 | XMS_ITS | Clinical Summary ---
Author Organization [facility] Address [address] [place] [address] Care Team Providers Care Quality Consultant Name Role Phone Reji Tabares MD Primary Care Provider [phone] Allergies No known active allergies Medications fluticasone propionate (FLONASE) 50 mcg/actuation nasal spray Administer 1 spray into each nostril daily Active multivitamin-Ca -iron-minerals (Multiple Vitamin, Womens) tablet Activ e multivitamin with minerals tablet Active aspirin 81 mg enteric coated tabletIndicatio ns:prevention of thrombosis Take 1 tablet (81 mg total) by mouth daily 0 1 Active Mounjaro 7.5 mg/0.5 mL pen injector ADMINISTER 7.5 MG UNDER THE SKIN WEEKLY 4 Active evolocumab (REPATHA) syringe syringe Inject 1 mL (140 mg total) under the skin every 14 (fourteen) days 6 mL 1 4 05/22/20 25 Active metoprolol XL (TOPROL-XL) 50 mg extended release tablet TAKE 1 TABLET BY MOUTH EVERY DAY 90 tablet 3 4 Active lisinopriL (PRINIVIL,ZESTR IL) 10 mg tablet TAKE 1 TABLET BY MOUTH DAILY 90 tablet 3 4 Active Active Problems Problem Noted Date Diagnosed Date 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 She is on ASA for this. Also takes folate and B11. Continue these. Anxiety 07/01/2021 Assessment & Plan (07/01/2021 10:08 AM CDT): It does seem that anxiety regarding her health as well as her children is contributing to her symptoms. I recommend that she begin exercising for an hour five days a week away from the home to help with weight loss, blood pressure and blood sugar control, and to help with her stress level. Also mentioned the Plango khadra, which she is going to investigate. Dyspnea on exertion 12/30/2020 Assessment & Plan (12/30/2020 11:32 AM DRIED YEAST SUPERVISOR): Some exertional dyspnea following COVID -19 illness. Oxygen saturation today is normal. Will obtain echo Doppler. PVC's (premature ventricular contractions) 10/17 Assessment & Plan (09/29/2021 5:10 PM DRIED YEAST SUPERVISOR): Symptoms have improved with metoprolol. Assessment & Plan (07/01/2021 10:07 AM CDT): Palpitations are also improved with increased metoprolol. Will obtain a TSH to make sure that thyroid abnormalities are not contributing to her symptoms. Assessment & Plan (03/04/2020 10:27 AM CDT): Asymptomatic on metoprolol with decreased stress level. Assessment & Plan (09/04/2019 12:06 PM CDT): Minimally symptomatic on low-dose metoprolol. Assessment & Plan (02/24/2019 2:14 PM CDT): Symptomatically improved but not completely resolved. They are tolerable to her. The connection to her GERD is puzzling. Assessment & Plan (10/17/2018 6:10 PM DRIED YEAST SUPERVISOR): These are frequent but benign and are felt as palpitations. Will obtain lab work to investigate as well as an echo Doppler. Would consider replacing lisinopril with low-dose metoprolol. She is comfortable enough with reassurance today that she does not feel the need to make any change pending results of her lab work. Temporomandibular joint disorder 04/28/2018 Assessment & Plan (04/28/2018 5:43 PM CDT): Patient is demonstrating signs and symptoms consistent with temp pillow mandibular joint dysfunction. Patient reports that she has has a tendency to the clench and grind her teeth. Patient has been prescribed a dental appliance in the past but since it does not fit well she does not use it. Prior to any further workup patient will be instructed to obtain a new dental guard. Patient is also instructed to refrain from any gum chewing hard candy use. She will be placed on a soft diet. Advised her to take naproxen [id number] for discomfort. Possible need for oral surgical consultation. Essential hypertension 04/24/2013 Overview (02/12/2017): High blood pressure Assessment & Plan (09/29/2021 5:09 PM DRIED YEAST SUPERVISOR): Blood pressure is in a good range since metoprolol was increased. Continue metoprolol succinate 50 mg daily and lisinopril 10 mg daily. Assessment & Plan (07/01/2021 10:06 AM CDT): Blood pressure is improved with increased metoprolol, which we will continue. Assessment & Plan (12/30/2020 11:32 AM DRIED YEAST SUPERVISOR): Blood pressure is adequately controlled on current regimen. No change was made. Assessment & Plan (03/04/2020 10:27 AM CDT): Blood pressure is adequately controlled on current regimen. No change was made. Assessment & Plan (09/04/2019 12:06 PM CDT): Blood pressure is adequately controlled on current regimen. No change was made. Assessment & Plan (02/24/2019 2:14 PM CDT): Blood pressure is controlled on her current regimen. There is room to increase her lisinopril if necessary. Hopefully with her new schedule she will have more time to exercise and her blood pressure may improve with weight loss. Assessment & Plan (10/17/2018 6:10 PM DRIED YEAST SUPERVISOR): Blood pressure is adequately controlled on current regimen. No change was made. Assessment & Plan (02/14/2018 5:32 PM CDT): Continue current medication. Blood pressure is well controlled. Surgical History Surgery Date Site/Laterality Comments SECTION 2004 Caesarean Section TONSILLECTOMY 1999 Tonsillectomy CHOLECYSTECTOMY 2000 Cholecystectomy OTHER SURGICAL HISTORY Hip Arthroscopy Medical History Medical History Date Comments Hx Other Medical hyper homocysti nemia Hx Other Medical hyper homcystin emia Hx Other Medical cesarian Hx Other Medical tonsillectomy Hx Other Medical neck lymph node Hx Other Medical gallbladder Hypertension Family History Medical History Relation Name Comments Hypertension Brother 2 Hypertension; Hypertension Father Hypertension; Breast cancer Other 1 Family history of Cancer, breast; Gout Other 2 Family history of gout; Other Other 3 Family history of Brain tumor; Crohn's disease Other 4 Family histo ry of Crohn's disease; Relation Name Status Comments Brother 1 Alive Brother 2 Father Alive Other 1 Other 2 Other 3 Other 4 Social History Tobacco Use Types Packs/Day Years Used Date Smoking Tobacco: Former Smokeless Tobacco: Never Tobacco Cessation:Counseling Given: Not Answered Comments:Smoking History Packs/day: 0.2 Packs Alcohol Use Standard Drinks/Week Comments No 0 (1 standard drink = 0.6 oz pur e alcohol) Personal Safety Answer Date Recorded Getting School Help Needed Not on file 01/02 Comments Unknown Sex and Gender Information Value Date Recorded Sex Assigned at Not on file Legal Sex Female 3:41 PM DRIED YEAST SUPERVISOR Gender Identity Female 12/30/2020 8:45 AM DRIED YEAST SUPERVISOR Sexual Orientation Straight 12/30/2020 8: 45 AM DRIED YEAST SUPERVISOR Obstetrics History Last Filed Vital Signs Vital Sign Reading Time Taken Comments Blood Pressure 120/72 05/16/2024 10:24 AM CDT Pulse 66 05/16/2024 10:24 AM CDT Temperature - - Respiratory Rate - - Oxygen Saturation 99% 05/16/2024 10:24 AM CDT Inhaled Oxygen Concentration - - Weight 98.2 kg (216 lb 9.6 oz) 05/16/2024 10:24 AM CDT Height 160 cm (5' 3 ) 05/16/2024 10:24 AM CDT Body Mass Index 38.37 05/16/2024 10:24 AM CDT Plan of Treatment Health Maintenance Due Date Last Done Comments Albumin Creatinine Ratio, Urine 1976 Cervical Cancer Screening 1976 Colon Cancer Screening-Colonoscopy 1976 Depression Screening 1976 Hemoglobin A1C 1976 Hepatitis C Screening 1976 Dilated Eye Exam 1976 Foot Exam 1976 DTaP/Tdap/Td Vaccine (1 - Tdap) 1987 Hepatitis B Screening 1994 Regular Well Visit/Exam 18-64 1994 Pneumococcal vaccine <65 (1 of 2 - PCV) 1995 eGFR 10/17/2019 10/17/2018 Lipid Panel 12/30/2021 12/30/2020 Breast Cancer Screening-Mammogram 10/22/2023 022 Influenza Vaccine (#1) 2024 08/24/2019, 2016 Procedures Procedure Name Priority Date/Time Associated Diagnosis Comments POCT LIPID PANEL Routine 12/30/2020 11:3 5 AM DRIED YEAST SUPERVISOR Screening for hyperlipidemia EGFR Routine 10/17/2018 5:00 PM DRIED YEAST SUPERVISOR PVC's (premature ventricular contractions) from Last 3 Months or Most Recently Relevant to Health Maintenance Results * POCT lipid panel (12/30/2020 11:35 AM DRIED YEAST SUPERVISOR) Cholesterol, POC 211 mg/dL HDL, POC 44 mg/dL Triglycerides, POC 288 mg/dL LDL Cholesterol POC 110 mg/dL Chol/HDL Ratio, POC 4.8 Non-HDL Cholesterol, POC 167 mg/dL Cholesterol Total, POC 211 mg/dL Capillary blood 12/30/2020 1 1:35 AM DRIED YEAST SUPERVISOR us Kaylin Whalen MD POINT OF CARE TEST ORDERABL ES Final Result * eGFR (10/17/2018 5:00 PM DRIED YEAST SUPERVISOR) eGFR 112 mL/min/1.7 3 m2 [facility] Comment: Interpretive Data Reference Interval Normal >/= 90 mL/min/1.73m2 Mildly decreased* 60 - 89 mL/min/1.73m2 Mildly to moderately decreased 45 - 59 mL/min/1.73m2 Moderately to severely decreased 30 - 44 mL/min/1.73m2 Severely decreased 15 - 29 mL/min/1.73m2 Kidney Failure < 15 mL/min/1.73m2 *Relative to young adult level If -Chinese multiply value by 1.16. Estimated glomerular filtration rate is determined by the CKD-EPI equation recommended by the National Kidney Foundation (KDIGO 2012 Clinical Practice Guideline for the Evaluation and Management of Chronic Kidney Disease. Kidney Intnl Suppl Nov 2012;3:1). The CKD-EPI equation should not be used for patients with unstable renal function and has not been validated in children and those over 70. Current interpretive data was last reviewed 2017. Blood specimen (specimen) 10/17/2018 5:00 PM DRIED YEAST SUPERVISOR 10/17/2018 5:00 PM DRIED YEAST SUPERVISOR Narrative [facility] - 10/17/2018 5:27 PM DRIED YEAST SUPERVISOR Kaylin Whalen MD LAB BLOOD ORDERABLES Final Result [facility] [address] [place] [address] from Last 3 Months or Most Recently Relevant to Health Maintenance Insurance [facility] Care Teams Quality Consultant Relationship Specialty Start Date End Date Reji Tabares MD [address] [place] [address] PCP - General Family Medicine 05/16/24
--- OUTSIDE RECORDS SUMMARY | 2025-03-08 09:18 | XMS_ITS | Referral Summary ---
Author Organization [facility] D Address [address] [place] [id number] Care Team Providers Care Square Cutter Name Role Phone Reji Tabares MD Primary Care Provider [phone] Allergies No known active allergies Medications fluticasone [...] 09/30/2021 Assessment & Plan (09/30/2021 10:59 AM HR ASSOCIATE): This is secondary to double mutation of [...] with her stress level. Also mentioned the PENRITH khadra, which she is going to investigate. Dyspnea on exertion 12/30/2020 Assessment & Plan (12/30/2020 11:32 AM HR ASSOCIATE): Some exertional dyspnea following COVID -19 illness. Oxygen saturation today is normal. Will obtain echo Doppler. PVC's (premature ventricular contractions) 10/17 Assessment & Plan (09/29/2021 5:10 PM HR ASSOCIATE): Symptoms have improved with metoprolol. Assessment & [...] puzzling. Assessment & Plan (10/17/2018 6:10 PM HR ASSOCIATE): These are frequent but benign and are [...] soft diet. Advised her to take naproxen [id number] for discomfort. Possible need for oral surgical consultation. Essential hypertension 04/24/2013 Overview (02/12/2017): High blood pressure Assessment & Plan (09/29/2021 5:09 PM HR ASSOCIATE): Blood pressure is in a good range since metoprolol was increased. Continue metoprolol succinate 50 mg daily and lisinopril 10 mg daily. Assessment & Plan (07/01/2021 10:06 AM CDT): Blood pressure is improved with increased metoprolol, which we will continue. Assessment & Plan (12/30/2020 11:32 AM HR ASSOCIATE): Blood pressure is adequately controlled on current [...] loss. Assessment & Plan (10/17/2018 6:10 PM HR ASSOCIATE): Blood pressure is adequately controlled on current regimen. No change was made. Assessment & Plan (02/14/2018 5:32 PM CDT): Continue current medication. Blood pressure is well controlled. Social History Tobacco Use Types Packs/Day Years [...] on file Legal Sex Female 3:41 PM HR ASSOCIATE Gender Identity Female 12/30/2020 8:45 AM HR ASSOCIATE Sexual Orientation Straight 12/30/2020 8: 45 AM HR ASSOCIATE Last Filed Vital Signs Vital Sign Reading [...] 05/16/2024 10:24 AM CDT Plan of Treatment Not on file Procedures Procedure Name Priority Date/Time Associated Diagnosis Comments POCT LIPID PANEL Routine 12/30/2020 11:3 5 AM HR ASSOCIATE Screening for hyperlipidemia EGFR Routine 10/17/2018 5:00 PM HR ASSOCIATE PVC's (premature ventricular contractions) from Last 3 Months or Most Recently Relevant to Health Maintenance Results * POCT lipid panel (12/30/2020 11:35 AM HR ASSOCIATE) Cholesterol, POC 211 mg/dL HDL, POC 44 mg/dL Triglycerides, POC 288 mg/dL LDL Cholesterol POC 110 mg/dL Chol/HDL Ratio, POC 4.8 Non-HDL Cholesterol, POC 167 mg/dL Cholesterol Total, POC 211 mg/dL Capillary blood 12/30/2020 1 1:35 AM HR ASSOCIATE us Kaylin Whalen MD POINT OF CARE TEST ORDERABL ES Final Result * eGFR (10/17/2018 5:00 PM HR ASSOCIATE) eGFR 112 mL/min/1.7 3 m2 [facility] Comment: Interpretive Data Reference Interval Normal >/= 90 mL/min/1.73m2 Mildly decreased* 60 - 89 mL/min/1.73m2 Mildly to moderately decreased 45 - 59 mL/min/1.73m2 Moderately to severely decreased 30 - 44 mL/min/1.73m2 Severely decreased 15 - 29 mL/min/1.73m2 Kidney Failure < 15 mL/min/1.73m2 *Relative to young adult level If -Luxembourger multiply value by 1.16. Estimated glomerular filtration [...] 2017. Blood specimen (specimen) 10/17/2018 5:00 PM HR ASSOCIATE 10/17/2018 5:00 PM HR ASSOCIATE Narrative [facility] - 10/17/2018 5:27 PM HR ASSOCIATE us Kaylin Whalen MD LAB BLOOD ORDERABLES Final Result [facility] [address] Department [email or web address] [address] from Last 3 Months or Most Recently Relevant to Health Maintenance [place] [employer] [place] [employer] [place] Care Teams Square Cutter Relationship Specialty Start Date End Date Reji Tabares MD [address] [place] [address] PCP - General Family Medicine 05/16/24
--- OUTSIDE RECORDS SUMMARY | 2025-03-08 09:18 | XMS_ITS | Clinical Summary ---
Author Organization [facility] Address [address] [place] [address] Phone Care Team Providers Care Card Puncher Name Role Phone Gladys Boateng MD Primary Care Provider [phone] Allergies Active Allergy Reactions Criticality Noted Date Comments Adhesive Rash Low 07/04/2013 Skin is very sensitive Medications lisinopril-hydro chlorothiazide (ZESTORETIC) 10-12.5 mg Oral tablet Take 1 Tab by mouth daily. Active NASONEX 50 mcg/actuation [place], Non-Aerosol 0 03/11/2015 Active Active Problems No known active problems Family History Medical History Relation Name Comments Diabetes Father Hypertension Father Relation Name Status Comments Father Social History Tobacco Use Types Packs/Day Years Used Date Smoking Tobacco: Former Alcohol Use Standard Drinks/Week Comments No 0 (1 standard drink = 0.6 oz pur e alcohol) Comments No Sex and Gender Information Value Date Recorded Sex Assigned at Not on file Legal Sex Female 11:37 AM CDT Gender Identity Not on file Sexual Orientation Not on file Last Filed Vital Signs Vital Sign Reading Time Taken Comments Blood Pressure 122/72 08/22/2015 9:11 AM CDT Pulse 78 06/13/2015 10:54 AM CDT Temperature 36.6 C (97.8 F) 07/04/2013 11:25 AM CDT Respiratory Rate 12 05/09/2015 9:43 AM CDT Oxygen Saturation 98% 07/04/2013 3:00 PM CDT Inhaled Oxygen Concentration - - Weight 95.3 kg (210 lb) 08/22/2015 9:11 AM CDT Height 160 cm (5' 3 ) 08/22/2015 9:11 AM CDT Body Mass Index 37.2 08/22/2015 9:11 AM CDT Plan of Treatment Health Maintenance Due Date Last Done Comments DTAP/TDAP/TD VACCINES (1 - Tdap) 1995 HEPATITIS B VACCINES (1 of 3 - 19+ 3-dose series) 06/08 HPV/Cotest (21-29) 1997 CERVICAL CANCER SCREENING 2006 HPV/Cotest (30-65) 2006 PAP SMEAR 2006 BREAST CANCER SCREENING 2016 COLORECTAL SCREENING 2021 Colorectal Cancer Screening 2021 FIT-DNA Q 3 years 2021 FIT/FOBT Q 1 year 2021 Flex Sig/CT Colonography Q 5 years 2021 INFLUENZA VACCINE (#1) 2024 Medical Devices Implanted Type Area Blast Furnace Blower Device Identifier Shelf Expiration Date Model / Serial / Lot [place] Sut Iconix 2.3mm 2strnd [id number] - [id number] Implanted:Qty: 3 on 07/04/2013 by Alton Betancourt [place] [facility] [place]: Hip [facility]- [facility] 01/04/2015 [id number] / [id number] / [id number] Insurance [employer] [place], [place] [id number] [place] [address] BLUE ACCESS/TRUE BLUE PPO Advance Directives For more information, please contact: [phone] * Full Code (Latest Code Status on File) Date Activated Date Inactivated Comments 07/04/2013 8:18 AM 07/04/2013 6:07 PM * Full Code Date Activated Date Inactivated Comments 07/04/2013 7:18 AM 07/04/2013 8:18 AM Care Teams Card Puncher Relationship Specialty Start Date End Date Gladys Boateng MD [address] [place] [id number] PCP - General Family Practice 07/04/13
== END 2025-03-08 09:01 | disposition home or self-care (01) ==
PROVIDERS: PCP Family Medicine; Visit Provider Nurse Practitioner
DX: Z12.31 Encounter for screening mammogram for malignant neoplasm of breast (principal)
CPT/HCPCS: 77063; 77067

== ENCOUNTER 2025-08-21 08:29 | Outpatient (CLI) | payer OTHER, SELFPAY ==
--- NOTE | ~2025-08-21 | XR_ITS ---
XR thoracic spine 2V Indication: Thoracic spine pain Comparison: None Findings: The vertebral heights are intact. No fracture or subluxation. The disc heights are intact. Soft tissues unremarkable Impression: No acute abnormality. Reviewed, dictated and finalized at location P. Impression: No acute abnormality.
--- NOTE | ~2025-08-21 | XR_ITS ---
XR lumbar spine 6V w bending Indication: Lumbar spine pain Comparison: None Findings: No fracture, no subluxation flexion and extension. Severe loss of disc height T12-L1, L1-2. Soft tissues unremarkable Impression: No acute abnormality. Reviewed, dictated and finalized at location P. Impression: No acute abnormality.
--- NOTE | ~2025-08-21 | XR_ITS ---
XR cervical spine min 6V Indication: Cervical spine pain Comparison: None Findings: No fracture, no subluxation with flexion-extension. Moderate loss of disc height C5-6 and C6-7 Soft tissues unremarkable Impression: No acute abnormality. Reviewed, dictated and finalized at location P. Impression: No acute abnormality.
== END 2025-08-21 08:30 | disposition home or self-care (01) ==
LOC: MICIMG 08:30
PROVIDERS: PCP Family Medicine; Visit Provider Chiropractor
DX: M54.2 Cervicalgia (principal); M54.6 Pain in thoracic spine; M54.50 Low back pain, unspecified
CPT/HCPCS: 72052; 72070; 72114